=== PATIENT | male | born 1965 | race Two or more races ===

== ENCOUNTER 2017-04-21 13:06 | Inpatient (IN) | payer OTHER ==
--- NOTE | 2017-04-21 13:43 | PDOC ---
History of Present Illness - General Chief Complaint: Pain, Acute Stated Complaint: ABD PAIN Time Seen by Provider: 04/21/17 13:43 Past History - Past Medical History Allergies/Adverse Reactions: Allergies Allergy/AdvReac Type Severity Reaction Status Date / Time No Known Allergies Allergy Verified 04/21/17 13:21 Home Medications: Ambulatory Orders Metformin HCl [Glucophage -] 850 mg PO DAILY 04/21/17 Diabetes: Yes - Surgical History Appendectomy: Yes - Immunization History Immunization Up to Date: Yes - Psycho/Social/Smoking Cessation Hx Suicidal Ideation: No Smoking History: Never smoked Hx Alcohol Use: No Drug/Substance Use Hx: No *Physical Exam - Vital Signs Last Vital Signs Temp Pulse Resp BP Pulse Ox 97.9 F 79 20 134/98 100 04/21/17 13:22 04/21/17 13:22 04/21/17 13:22 04/21/17 13:22 04/21/17 13:22
[2017-04-21 13:50] LABS: BASOPHIL 0.5 % (0-2.0); EOSINOPHIL 0.6 % (0-4.5); MCH 26.8 pg (25.7-33.7); MCHC 33.4 g/dl (32.0-35.9); MEAN CELL VOLUME 80.3 fl (80-96); MEAN PLT VOLUME 7.3 fl (7.5-11.1); NEUTROPHILS 73.1 % (42.8-82.8); PLATELET COUNT 293 K/MM3 (134-434); RDW 17.4 % (11.9-15.9); WHITE BLOOD COUNT 12.4 K/mm3 (4.0-10.0)
[2017-04-21] MEDS ORDERED: SODIUM CHLORIDE 1,000 ML IV STA ×2 (13:53→15:56)
[2017-04-21] MEDS ORDERED: ONDANSETRON 4 MG/2 ML VIAL IVPUSH ONE (13:53)
[2017-04-21] MEDS ORDERED: morphine CARPU-JECT 4 MG/1 ML DISP.SYRIN IVPUSH ONE (13:53)
[2017-04-21] MEDS ORDERED: morphine CARPU-JECT 4 MG/1 ML DISP.SYRIN ONE (14:00)
[2017-04-21] MEDS ORDERED: ONDANSETRON 4 MG/2 ML VIAL ONE ×2 (14:01→21:16)
--- NOTE | 2017-04-21 14:08 | PDOC ---
History of Present Illness - General History Source: Patient, Spouse - History of Present Illness Quality: reports: severe Abdominal Pain Onset Location: reports: generalized abdomen <Michael Mattson - Last Filed: 04/21/17 16:43> <Jaky Logan - Last Filed: 04/26/17 17:33> - General Chief Complaint: Pain, Acute Stated Complaint: ABD PAIN Time Seen by Provider: 04/21/17 13:43 Past History - Past Medical History Diabetes: Yes - Surgical History Appendectomy: Yes - Immunization History Immunization Up to Date: Yes - Psycho/Social/Smoking Cessation Hx Suicidal Ideation: No Smoking History: Never smoked Hx Alcohol Use: No Drug/Substance Use Hx: No <Michael Mattson - Last Filed: 04/21/17 16:43> <Jaky Logan - Last Filed: 04/26/17 17:33> - Past Medical History Allergies/Adverse Reactions: Allergies Allergy/AdvReac Type Severity Reaction Status Date / Time No Known Allergies Allergy Verified 04/21/17 13:21 Home Medications: Ambulatory Orders Benazepril HCl 10 mg PO DAILY 04/21/17 Folic Acid 1 mg PO DAILY 04/21/17 Metformin HCl [Glucophage -] 850 mg PO DAILY 04/21/17 Ranitidine [Zantac -] 150 mg PO BID 04/21/17 Review of Systems - Review of Systems Constitutional: No: Fever ABD/GI: Yes: Nausea, Abdominal cramping. No: Diarrhea, Vomiting : No: Dysuria, Flank Pain, Hematuria <Michael Mattson - Last Filed: 04/21/17 16:43> *Physical Exam - Vital Signs Last Vital Signs Temp Pulse Resp BP Pulse Ox 97.9 F 79 20 134/98 100 04/21/17 13:22 04/21/17 13:22 04/21/17 13:22 04/21/17 13:22 04/21/17 13:22 - Physical Exam Comments: 04/21/17 14:08 Pt writhing in pain on stretcher General Appearance: Yes: Appropriately Dressed, Severe Distress HEENT: positive: Normal Voice Neck: positive: Supple Respiratory/Chest: positive: Lungs Clear, Normal Breath Sounds. negative: Respiratory Distress Cardiovascular: positive: Regular Rate, S1, S2 Gastrointestinal/Abdominal: positive: Tender (diffusely), Soft, Guarding Musculoskeletal: negative: CVA Tenderness Extremity: positive: Normal Inspection Integumentary: positive: Dry, Warm Neurologic: positive: Fully Oriented, Alert, Normal Mood/Affect <Taryn MattsonJovon - Last Filed: 04/21/17 16:43> - Vital Signs Last Vital Signs Temp Pulse Resp BP Pulse Ox 97.7 F 50 L 18 143/60 97 04/26/17 14:54 04/26/17 14:54 04/26/17 14:54 04/26/17 14:54 04/26/17 09:00 <Jaky Logan - Last Filed: 04/26/17 17:33> Heart Score/ECG Review - ECG Intrepretation Comment:: 04/21/17 14:29 Twelve-lead EKG was performed and reviewed by me. There is normal sinus rhythm with a normal rate. The axis is normal. The intervals are normal. There are no ST or T wave abnormalities. Impression: Normal twelve-lead EKG <Taryn MattsonKareenVivian - Last Filed: 04/21/17 16:43> ED Treatment Course - LABORATORY CBC & Chemistry Diagram: 04/21/17 13:43 04/21/17 13:43 - ADDITIONAL ORDERS Additional order review: 04/21/17 13:43 RBC 4.90 MCV 80.3 MCHC 33.4 RDW 17.4 H MPV 7.3 L Neutrophils % 73.1 Lymphocytes % 17.8 Monocytes % 8.0 Eosinophils % 0.6 Basophils % 0.5 - RADIOLOGY Radiology Studies Ordered: Category Date Time Status ABDOMEN & PELVIS CT WITH CONTR [CT] Stat CT Scan 04/21/17 13:55 Ordered <TwilaTarynKareenVivian - Last Filed: 04/21/17 16:43> - LABORATORY CBC & Chemistry Diagram: 04/26/17 07:00 04/26/17 07:00 - ADDITIONAL ORDERS Additional order review: 04/21/17 13:43 RBC 4.90 MCV 80.3 MCHC 33.4 RDW 17.4 H MPV 7.3 L Neutrophils % 73.1 Lymphocytes % 17.8 Monocytes % 8.0 Eosinophils % 0.6 Basophils % 0.5 - Medications Given in the ED: ED Medications Discontinued Medications Generic Name Dose Route Start Last Admin Trade Name Nguyễnq PRN Reason Stop Dose Admin Hydromorphone HCl 2 mg 04/21/17 16:18 04/21/17 16:25 Dilaudid Injection - IVPB 04/21/17 16:19 2 mg ONCE ONE Administration Hydromorphone HCl 1 mg 04/21/17 16:19 04/22/17 16:41 Dilaudid Injection - IVPUSH 1 mg Q4H PRN Administration PAIN Hydromorphone HCl 1 mg 04/23/17 01:32 04/23/17 21:52 Dilaudid Injection - IVPB 1 mg Q4H PRN Administration PAIN Sodium Chloride 1,000 mls @ 1,000 mls/hr 04/21/17 13:53 04/21/17 14:00 Normal Saline - IV 04/21/17 14:52 1,000 mls/hr ASDIR STA Administration Sodium Chloride 1,000 mls @ 1,000 mls/hr 04/21/17 15:56 04/21/17 16:21 Normal Saline - IV 04/21/17 16:55 1,000 mls/hr ASDIR STA Administration Dextrose/Sodium Chloride 1,000 mls @ 100 mls/hr 04/21/17 16:30 04/22/17 07:48 D5-1/2ns - IV 100 mls/hr ASDIR LAINA Administration Lactated Ringer's 1,000 mls @ 125 mls/hr 04/22/17 10:15 04/24/17 12:24 Lactated Ringers Solution IV 125 mls/hr ASDIR LAINA Administration Lactated Ringer's 1,000 mls @ 200 mls/hr 04/24/17 17:30 04/26/17 15:14 Lactated Ringers Solution IV 200 mls/hr ASDIR LAINA Administration Insulin Aspart 1 vial 04/21/17 16:30 04/22/17 07:48 Novolog Vial Sliding Scale - SQ Not Given ACHS LAINA Protocol Insulin Aspart 1 vial 04/22/17 10:02 04/24/17 16:13 Novolog Vial Sliding Scale - SQ Not Given ACHS LAINA Protocol Morphine Sulfate 4 mg 04/21/17 13:53 04/21/17 14:09 Morphine Injection - IVPUSH 04/21/17 13:54 4 mg ONCE ONE Administration Ondansetron HCl 4 mg 04/21/17 13:53 04/21/17 14:10 Zofran Injection IVPUSH 04/21/17 13:54 4 mg ONCE ONE Administration Piperacillin Sod/Tazobactam Sod 3.375 gm 04/21/17 17:00 04/22/17 01:24 Zosyn 3.375gm Ivpb (Pre-Docked) IVPB 04/22/17 01:01 3.375 gm Q8H LAINA Administration Protocol Piperacillin Sod/Tazobactam Sod 3.375 gm 04/22/17 18:45 04/24/17 09:06 Zosyn 3.375gm Ivpb (Pre-Docked) IVPB 3.375 gm Q8H-IV LAINA Administration Protocol <Jaky Logan - Last Filed: 04/26/17 17:33> Medical Decision Making - Medical Decision Making 04/21/17 14:03 51 yo M, h/o NIDDM, HTN, s/p appy remotely, here with severe periumbilical abdominal pain that started several days ago but acutely worsened today. Patient also complaining of nausea, no vomiting. Denies change in bowel movements, bright red blood per rectum, melena, fever, chills, dysuria or hematuria. Patient states he's never had this pain before. See exam Severe abd pain Pt appears very uncomfortable in ED Poorly localized tenderness on exam but no peritoneal findings -pain control -zofran -IVF -XR r/o free air given level of discomfort -CT r/o divertiticulitis vs acute светлана vs pancreatitis, unlikely aortic dissection, doubt renal colic as no flank pain or sxs 04/21/17 14:09 04/21/17 14:29 04/21/17 14:55 Acute gallstone pancreatitis on CT w/ elevated LFTS including lipase of >24K! Pt denies ETOH abuse -NPO -pain control -IVF -admit 04/21/17 16:17 Case d/w hospitalist and pt admitted to med/surg 04/21/17 16:31 04/21/17 16:31 04/21/17 16:43 04/21/17 16:44 <Michael Mattson - Last Filed: 04/21/17 16:43> - Medical Decision Making 04/26/17 17:32 Pt seen and evaluated with [employer] [employer]. Agree with above. <Jaky Logan - Last Filed: 04/26/17 17:33> *DC/Admit/Observation/Transfer - Discharge Dispostion Admit: Yes <Michael Mattson - Last Filed: 04/21/17 16:43> <Jaky Logan - Last Filed: 04/26/17 17:33> Diagnosis at time of Disposition: Acute pancreatitis Qualifiers: Pancreatitis type: biliary Acute pancreatitis complication: no infection or necrosis Qualified Code(s): K85.10 - Biliary acute pancreatitis without necrosis or infection - Discharge Dispostion Condition at time of disposition: Fair - Referrals
[2017-04-21 14:15] LABS: ALBUMIN 3.9 g/dl (3.4-5.0); ANION GAP 8 (8-16); BILIRUBIN,TOTAL 0.8 mg/dL (0.2-1.0); CALCIUM 9.3 mg/dL (8.5-10.1); CO2 28 mmol/L (21-32); GLUCOSE,RANDOM 211 mg/dL (74-106); SGOT/AST 151 U/L (15-37); SGPT/ALT 102 U/L (12-78); TOT PROT 7.4 g/dl (6.4-8.2)
[2017-04-21 14:18] LABS: ALK PHOS 133 U/L (45-117); TROPONIN I < 0.02 ng/ml (0.00-0.05)
[2017-04-21 16:15] LABS: URINE APPEARANCE CLEAR; URINE BILIRUBIN NEGATIVE (NEGATIVE); URINE BLOOD NEGATIVE (NEGATIVE); URINE COLOR LTYELLOW; URINE GLUCOSE (UA) 1+ (NEGATIVE); URINE KETONE NEGATIVE (NEGATIVE); URINE LEUK ESTERASE NEGATIVE (NEGATIVE); URINE NITRITE NEGATIVE (NEGATIVE); URINE PROTEIN NEGATIVE (NEGATIVE); URINE UROBILINOGEN NEGATIVE E.U./dl (0.2-1.0)
--- NOTE | 2017-04-21 16:17 | HP ---
CHIEF COMPLAINT: abd pain for few days PCP: Dr. Spencer Sommers HISTORY OF PRESENT ILLNESS: This 51 yo M, admitted for severe periumbilical abdominal pain that started several days ago but acutely worsened today. His complaints include nausea. He denies vomiting, diarrhea, fever, melena, or dysuria. He states he has never had this pain before and he only drinks ETOH socially. Denies drug use . ER course was notable for: (1) CT of abd/pel revealing calculi induced pancreatitis, NPO, ABT, IVF, Pain managemnt, GI (2) (3) Recent Travel: none PAST MEDICAL HISTORY: NIDDM, HTN PAST SURGICAL HISTORY: appy Social History: Smoking: Alcohol: denies recent use. Drugs: Family History: Allergies No Known Allergies Allergy (Verified 04/21/17 13:21) HOME MEDICATIONS: Home Medications Medication Instructions Recorded Benazepril HCl 10 mg PO DAILY 04/21/17 Folic Acid 1 mg PO DAILY 04/21/17 Metformin HCl [Glucophage -] 850 mg PO DAILY 04/21/17 Ranitidine [Zantac -] 150 mg PO BID 04/21/17 REVIEW OF SYSTEMS CONSTITUTIONAL: Absent: fever, chills, diaphoresis, generalized weakness, malaise, loss of appetite, weight change HEENT: Absent: rhinorrhea, nasal congestion, throat pain, throat swelling, difficulty swallowing, mouth swelling, ear pain, eye pain, visual changes CARDIOVASCULAR: Absent: chest pain, syncope, palpitations, irregular heart rate, lightheadedness , peripheral edema RESPIRATORY: Absent: cough, shortness of breath, dyspnea with exertion, orthopnea, wheezing, stridor, hemoptysis GASTROINTESTINAL: Absent: (+)abdominal pain, abdominal distension, (+)nausea, vomiting, diarrhea, constipation, melena, hematochezia GENITOURINARY: Absent: dysuria, frequency, urgency, hesitancy, hematuria, flank pain, genital pain MUSCULOSKELETAL: Absent: myalgia, arthralgia, joint swelling, back pain, neck pain SKIN: Absent: rash, itching, pallor HEMATOLOGIC/IMMUNOLOGIC: Absent: easy bleeding, easy bruising, lymphadenopathy, frequent infections ENDOCRINE: Absent: unexplained weight gain, unexplained weight loss, heat intolerance, cold intolerance NEUROLOGIC: Absent: headache, focal weakness or paresthesias, dizziness, unsteady gait, seizure, mental status changes, bladder or bowel incontinence PSYCHIATRIC: Absent: anxiety, depression, suicidal or homicidal ideation, hallucinations. PHYSICAL EXAMINATION Vital Signs - 24 hr 04/21/17 04/21/17 04/21/17 13:20 13:22 14:00 Temperature 97.9 F Pulse Rate 79 Respiratory 20 Rate Blood Pressure 134/98 134/98 O2 Sat by Pulse 100 100 Oximetry (%) GENERAL: Awake, alert, and fully oriented, in no acute distress. HEAD: Normal with no signs of trauma. EYES: Pupils equal, round and reactive to light, extraocular movements intact, sclera anicteric, conjunctiva clear. No lid lag. EARS, NOSE, THROAT: Ears normal, nares patent, oropharynx clear without exudates. Moist mucous membranes. NECK: Normal range of motion, supple without lymphadenopathy, JVD, or masses. LUNGS: Breath sounds equal, clear to auscultation bilaterally. No wheezes, and no crackles. No accessory muscle use. HEART: Regular rate and rhythm, normal S1 and S2 without murmur, rub or gallop. ABDOMEN: Soft, tender, not distended, normoactive bowel sounds, no guarding, no rebound, no masses. No hepatomegaly or splenomegaly. MUSCULOSKELETAL: Normal range of motion at all joints. No bony deformities or tenderness. No CVA tenderness. UPPER EXTREMITIES: 2+ pulses, warm, well-perfused. No cyanosis. No clubbing. No peripheral edema. LOWER EXTREMITIES: 2+ pulses, warm, well-perfused. No calf tenderness. No peripheral edema. NEUROLOGICAL: Cranial nerves II-XII intact. Normal speech. Normal gait. PSYCHIATRIC: Cooperative. Good eye contact. Appropriate mood and affect. SKIN: Warm, dry, normal turgor, no rashes or lesions noted, normal capillary refill. Laboratory Results - last 24 hr 04/21/17 04/21/17 13:43 13:43 WBC 12.4 H RBC 4.90 Hgb 13.1 Hct 39.3 MCV 80.3 MCHC 33.4 RDW 17.4 H Plt Count 293 MPV 7.3 L Neutrophils % 73.1 Lymphocytes % 17.8 Monocytes % 8.0 Eosinophils % 0.6 Basophils % 0.5 Sodium 138 Potassium 4.4 Chloride 102 Carbon Dioxide 28 Anion Gap 8 BUN 15 Creatinine 1.0 Creat Clearance w eGFR > 60 Random Glucose 211 H Calcium 9.3 Total Bilirubin 0.8 AST 151 H ALT 102 H Alkaline Phosphatase 133 H Creatine Kinase 118 Troponin I < 0.02 Total Protein 7.4 Albumin 3.9 ASSESSMENT/PLAN: This 51 yr old male with c/o abd pain over the past few days with suggestive finding of calculi induced pancreatitis found on CT. 1. pancreatitis -NPO/IVF -pain managment -ABT -GI consult -trend LFT 2. DM -fingersticks -coverage 3. Admission criteria for inpatient med surg. Visit type - Emergency Visit Emergency Visit: Yes Care time: The patient presented to the Emergency Department on the above date and was hospitalized for further evaluation of their emergent condition. - New Patient This patient is new to me today: Yes Date on this admission: 04/21/17 - Critical Care Critical Care patient: No
[2017-04-21] MEDS ORDERED: HYDROmorphone HCL CARPU-JECT 2 MG/1 ML DISP.SYRIN IVPB ONE (16:18)
[2017-04-21] MEDS ORDERED: ONDANSETRON 4 MG/2 ML VIAL IVPB PRN (16:19)
[2017-04-21] MEDS ORDERED: HYDROmorphone HCL CARPU-JECT 2 MG/1 ML DISP.SYRIN ONE (16:26)
[2017-04-21] MEDS ORDERED: PANTOPRAZOLE SODIUM 40 MG in SODIUM CHLORIDE 100 ML IVPB SCH (16:30)
[2017-04-21] MEDS ORDERED: PANTOPRAZOLE SODIUM 40 MG VIAL ONE (16:33)
[2017-04-21] MEDS: INSULIN SLIDING SCALE (NOVOLOG) 1 VIAL SQ SCH ×2 (17:03→21:28)
[2017-04-21] MEDS: PANTOPRAZOLE SODIUM 40 MG/100 ML PRE-DOCKED IVPB SCH (17:05)
[2017-04-21] MEDS ORDERED: INSULIN (NOVOLOG) ASPART 100 UNITS/ML 10ML VIAL ONE (17:09)
[2017-04-21] MEDS: PIPERACILLIN/TAZOB 3.375 GM/50 ML PRE-DOCKED IVPB SCH (17:13)
[2017-04-21] MEDS: DEXTROSE 5%-0.45% SALINE 1,000 ML IV SCH (18:32)
[2017-04-21] MEDS ORDERED: HYDROmorphone HCL CARPU-JECT 1 MG/1 ML DISP.SYRIN ONE (21:03)
[2017-04-21] MEDS ORDERED: HEPARIN NA (PORCINE) 5,000 UNITS/ML 1ML VIAL ONE (21:04)
[2017-04-21] MEDS: HEPARIN NA (PORCINE) 5,000 UNITS/ML 1ML VIAL SQ SCH (21:27)
[2017-04-21] MEDS: HYDROmorphone HCL CARPU-JECT 1 MG/1 ML DISP.SYRIN IVPUSH PRN (21:28)
[2017-04-22 00:23] VITALS: BMI 34.8
[2017-04-22] MEDS ORDERED: PIPERACILLIN/TAZOB 3.375 GM 50 ML IVPB ONE (01:04)
[2017-04-22] MEDS ORDERED: HYDROmorphone HCL CARPU-JECT 1 MG/1 ML DISP.SYRIN ONE ×2 (01:14→16:32)
[2017-04-22] MEDS: PIPERACILLIN/TAZOB 3.375 GM/50 ML PRE-DOCKED IVPB SCH ×2 (01:24→19:48)
[2017-04-22] MEDS: HYDROmorphone HCL CARPU-JECT 1 MG/1 ML DISP.SYRIN IVPUSH PRN ×2 (01:24→16:41)
[2017-04-22] MEDS: DEXTROSE 5%-0.45% SALINE 1,000 ML IV SCH ×2 (01:25→07:48)
[2017-04-22] MEDS ORDERED: HEPARIN NA (PORCINE) 5,000 UNITS/ML 1ML VIAL ONE (06:15)
[2017-04-22 06:21] LABS: BASOPHIL 0.2 % (0-2.0); EOSINOPHIL 0.1 % (0-4.5); MCH 26.6 pg (25.7-33.7); MCHC 32.8 g/dl (32.0-35.9); MEAN CELL VOLUME 81.2 fl (80-96); MEAN PLT VOLUME 7.8 fl (7.5-11.1); NEUTROPHILS 70.1 % (42.8-82.8); PLATELET COUNT 281 K/MM3 (134-434); WHITE BLOOD COUNT 9.7 K/mm3 (4.0-10.0)
[2017-04-22 06:31] LABS: INR 1.12 (0.82-1.09); PROTHROMBIN TIME (PATIENT) 12.3 SEC (9.98-11.88)
[2017-04-22 06:34] LABS: ACTIVATED PTT 30.8 SECONDS (26.9-34.4)
[2017-04-22 06:49] LABS: ANION GAP 7 (8-16); CO2 30 mmol/L (21-32); MAGNESIUM 2.1 mg/dL (1.8-2.4); SGOT/AST 92 U/L (15-37); SGPT/ALT 111 U/L (12-78)
[2017-04-22 06:58] LABS: ALBUMIN 3.5 g/dl (3.4-5.0); ALK PHOS 132 U/L (45-117); AMYLASE 377 U/L (25-115); BILIRUBIN,TOTAL 0.7 mg/dL (0.2-1.0); CALCIUM 8.8 mg/dL (8.5-10.1); CREATININE 0.9 mg/dL (0.7-1.3); GLUCOSE,RANDOM 237 mg/dL (74-106); PHOSPHOROUS 2.9 mg/dL (2.5-4.9); TOT PROT 6.8 g/dl (6.4-8.2)
[2017-04-22] MEDS: HEPARIN NA (PORCINE) 5,000 UNITS/ML 1ML VIAL SQ SCH ×3 (07:47→21:41)
[2017-04-22] MEDS: INSULIN SLIDING SCALE (NOVOLOG) 1 VIAL SQ SCH ×4 (07:48→21:41)
[2017-04-22] MEDS ORDERED: PANTOPRAZOLE SODIUM 100 ML IVPB ONE (09:05)
[2017-04-22] MEDS: PANTOPRAZOLE SODIUM 40 MG/100 ML PRE-DOCKED IVPB SCH (09:45)
[2017-04-22] MEDS ORDERED: PIPERACILLIN/TAZOB 3.375 GM/50 ML PRE-DOCKED IVPB SCH (10:00)
[2017-04-22] MEDS: LACTATED RINGERS SOLUTION 1,000 ML IV SCH ×2 (12:49→19:53)
--- NOTE | 2017-04-22 14:21 | EKG ---
Test Reason : Blood Pressure : / mmHG Vent. Rate : 075 BPM Atrial Rate : 075 BPM P-R Int : 168 ms QRS Dur : 108 ms QT Int : 406 ms P-R-T Axes : 039 048 047 degrees QTc Int : 453 ms NORMAL SINUS RHYTHM NORMAL ECG NO PREVIOUS ECGS AVAILABLE Confirmed by ADRIANO CRANE MD ([id number]) on 04/22/2017 2:21:02 PM Referred By: Confirmed By:ADRIANO CRANE MD
--- NOTE | 2017-04-22 18:26 | PN ---
Physical Exam: SUBJECTIVE: Patient seen and examined. He had CANDELARIO earlier improve with pain meds , however he has a lot of abdominal pain Events: Tmax 100.4 OBJECTIVE: Vital Signs Period Temp Pulse Resp BP Sys/Pollard Pulse Ox Last 24 Hr 98.4 F-100.4 F 71-100 20-20 115-136/71-76 98-99 PE Neuro: alert, awake, cn 2-12intact Pulm: clear anteriorly CV: s1 s2 rrr no mrg Abd: diffuse abd tenderness to palpation to RUQ, umbilical region and LLQ, mild distention, Ext: no le edema, warm Laboratory Results - last 24 hr 04/21/17 04/22/17 04/22/17 21:25 05:38 05:38 WBC 9.7 RBC 4.48 Hgb 11.9 Hct 36.4 MCV 81.2 MCHC 32.8 RDW 17.0 H Plt Count 281 MPV 7.8 Neutrophils % 70.1 Lymphocytes % 21.2 Monocytes % 8.4 Eosinophils % 0.1 D Basophils % 0.2 INR 1.12 PTT (Actin FS) 30.8 Sodium Potassium Chloride Carbon Dioxide Anion Gap BUN Creatinine Creat Clearance w eGFR POC Glucometer [id number] Random Glucose Calcium Phosphorus Magnesium Total Bilirubin AST ALT Alkaline Phosphatase Total Protein Albumin Total Amylase Lipase Active Medications Generic Name Dose Route Start Last Admin Trade Name Nguyễnq PRN Reason Stop Dose Admin Heparin Sodium (Porcine) 5,000 unit 04/21/17 22:00 04/22/17 14:09 Heparin - SQ 5,000 unit TID LAINA Administration Hydromorphone HCl 1 mg 04/21/17 16:19 04/22/17 16:41 Dilaudid Injection - IVPUSH 1 mg Q4H PRN Administration PAIN Lactated Ringer's 1,000 mls @ 125 mls/hr 04/22/17 10:15 04/22/17 12:49 Lactated Ringers Solution IV 125 mls/hr ASDIR LAINA Administration Insulin Aspart 1 vial 04/22/17 10:02 04/22/17 17:22 Novolog Vial Sliding Scale - SQ 2 units ACHS LAINA Administration Protocol Ondansetron HCl 4 mg 04/21/17 16:19 04/21/17 21:28 Zofran Injection IVPB 4 mg Q6H PRN Administration NAUSEA Pantoprazole Sodium 40 mg 04/21/17 17:00 06/19/17 09:45 Protonix 40mg Ivpb (Pre-Docked) IVPB 40 mg DAILY LAINA Administration Assessment: 51 year old male with HTN, DM II admitted with acute pancreatitis Plan: 1. Acute Pancreatitis, likely gallstone related - Febrile this afternoon - Continue LR 125cc/hr - Check Lipase - Keep NPO - Zosyn 8hr - Draw blood cultures now - ID consulted 2. DM II - ISS, BGM ACHS 3. HTN - Hold home benazipril Visit type - Emergency Visit Emergency Visit: Yes ED Registration Date: 04/21/17 Care time: The patient presented to the Emergency Department on the above date and was hospitalized for further evaluation of their emergent condition. - New Patient This patient is new to me today: Yes Date on this admission: 04/22/17 - Critical Care Critical Care patient: No
[2017-04-22] MEDS ORDERED: ACETAMINOPHEN 650 MG SUPP.RECT PR PRN (18:30)
--- NOTE | 2017-04-22 19:10 | PN ---
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
--- NOTE | 2017-04-22 19:13 | CONSULT ---
Consult Consult Specialty:: infectious diseases Reason for Consultation:: choleycystitis/pancreatitis - History of Present Illness Chief Complaint: abd pain History of Present Illness: 51M admitted for evaluation of abdominal pain. history given by his spouse as he can speak only chinese,rest of the family in the room also Patient with abd discomfort which became untolerable patient came to the hospital and was admitted and the imaging studies done shows cholelithiasis. he was noted to have a leukocytosis, low grade temp, elevated ALP and transaminases, elevated amylase and lipase and CT scan revealing cholelithiasis and changes consistent with acute pancreatitis. patients pain is pretty remarkable and patient has murphys positive other than that patient has no issues patient does use etoh - History Source History Provided By: Family Member Limitations to Obtaining History: Language Barrier - Alcohol/Substance Use Hx Alcohol Use: No - Smoking History Smoking history: Never smoked Have you smoked in the past 12 months: No Home Medications - Allergies Allergies/Adverse Reactions: Allergies Allergy/AdvReac Type Severity Reaction Status Date / Time No Known Allergies Allergy Verified 04/21/17 13:21 - Home Medications Home Medications: Ambulatory Orders Benazepril HCl 10 mg PO DAILY 04/21/17 Folic Acid 1 mg PO DAILY 04/21/17 Metformin HCl [Glucophage -] 850 mg PO DAILY 04/21/17 Ranitidine [Zantac -] 150 mg PO BID 04/21/17 Review of Systems - Review of Systems Constitutional: reports: Chills, Fever Eyes: reports: No Symptoms HENT: reports: No Symptoms Neck: reports: No Symptoms Cardiovascular: reports: No Symptoms Respiratory: reports: No Symptoms Gastrointestinal: reports: Abdominal Pain Genitourinary: reports: No Symptoms Musculoskeletal: reports: No Symptoms Integumentary: reports: No Symptoms Neurological: reports: No Symptoms Endocrine: reports: No Symptoms Hematology/Lymphatic: reports: No Symptoms Psychiatric: reports: No Symptoms Physical Exam Vital Signs: Vital Signs Temperature 99.5 F 04/22/17 18:56 Pulse Rate 81 04/22/17 18:56 Respiratory Rate 20 04/22/17 18:56 Blood Pressure 120/81 04/22/17 18:56 O2 Sat by Pulse Oximetry (%) 99 04/22/17 09:00 Constitutional: Yes: Well Nourished, Mild Distress Eyes: Yes: Conjunctiva Clear HENT: Yes: Atraumatic Neck: Yes: Supple Cardiovascular: Yes: Regular Rate and Rhythm Respiratory: Yes: Regular, CTA Bilaterally Gastrointestinal: Yes: Soft, Tenderness (ruq) Musculoskeletal: Yes: WNL Extremities: Yes: WNL Neurological: Yes: Alert, Oriented Psychiatric: Yes: Alert, Oriented Labs: CBC, BMP 04/22/17 05:38 04/22/17 05:38 Imaging - Results Chest X-ray: Report Reviewed, Image Reviewed Cat Scan: Report Reviewed, Image Reviewed Assessment/Plan [facility] List - Problems (1) Acute pancreatitis Code(s): K85.90 - ACUTE PANCREATITIS WITHOUT NECROSIS OR INFECTION, UNSP Qualifiers: Pancreatitis type: biliary Acute pancreatitis complication: no infection or necrosis Qualified Code(s): K85.10 - Biliary acute pancreatitis without necrosis or infection 2 cholecystitis 3 dm plan will start iv abx await for all cx report
[2017-04-23] MEDS: HYDROmorphone HCL CARPU-JECT 1 MG/1 ML DISP.SYRIN IVPB PRN ×3 (01:35→21:52)
[2017-04-23] MEDS: PIPERACILLIN/TAZOB 3.375 GM/50 ML PRE-DOCKED IVPB SCH ×3 (02:34→17:45)
[2017-04-23] MEDS: HEPARIN NA (PORCINE) 5,000 UNITS/ML 1ML VIAL SQ SCH ×3 (05:48→21:53)
[2017-04-23] MEDS: LACTATED RINGERS SOLUTION 1,000 ML IV SCH ×3 (05:48→16:29)
[2017-04-23] MEDS: INSULIN SLIDING SCALE (NOVOLOG) 1 VIAL SQ SCH ×4 (06:12→21:56)
[2017-04-23 08:07] LABS: BASOPHIL 0.4 % (0-2.0); EOSINOPHIL 0.7 % (0-4.5); MCH 26.7 pg (25.7-33.7); MCHC 33.1 g/dl (32.0-35.9); MEAN CELL VOLUME 80.6 fl (80-96); MEAN PLT VOLUME 7.7 fl (7.5-11.1); NEUTROPHILS 52.3 % (42.8-82.8); PLATELET COUNT 248 K/MM3 (134-434); RDW 17.4 % (11.9-15.9); WHITE BLOOD COUNT 8.1 K/mm3 (4.0-10.0)
[2017-04-23 08:53] LABS: ALBUMIN 3.2 g/dl (3.4-5.0); ALK PHOS 131 U/L (45-117); ANION GAP 7 (8-16); BILIRUBIN,TOTAL 1.2 mg/dL (0.2-1.0); CALCIUM 8.8 mg/dL (8.5-10.1); CO2 30 mmol/L (21-32); CREATININE 0.8 mg/dL (0.7-1.3); GLUCOSE,RANDOM 124 mg/dL (74-106); SGOT/AST 51 U/L (15-37); SGPT/ALT 74 U/L (12-78); TOT PROT 6.3 g/dl (6.4-8.2)
[2017-04-23] MEDS: PANTOPRAZOLE SODIUM 40 MG/100 ML PRE-DOCKED IVPB SCH (10:26)
--- NOTE | 2017-04-23 12:50 | PN ---
Physical Exam: SUBJECTIVE: Patient seen and examined. He is feeling a litter better, he has less diffuse tenderness. OOB to side with . He wants to eat OBJECTIVE: Vital Signs Period Temp Pulse Resp BP Sys/Pollard Pulse Ox Last 24 Hr 98.9 F-100.4 F 75-100 20-20 118-148/63-93 99 PE Neuro: alert, awake, cn 2-12intact Pulm: CTAB CV: s1 s2 rrr no mrg Abd: non specific referring of abdominal tenderness, point epigastric less Ext: no le edema, warm Laboratory Results - last 24 hr 04/22/17 04/23/17 04/23/17 21:40 05:34 07:00 WBC 8.1 RBC 4.34 Hgb 11.6 L Hct 35.0 L MCV 80.6 MCHC 33.1 RDW 17.4 H Plt Count 248 MPV 7.7 Neutrophils % 52.3 D Lymphocytes % 34.2 D Monocytes % 12.4 H Eosinophils % 0.7 D Basophils % 0.4 Sodium Potassium Chloride Carbon Dioxide Anion Gap BUN Creatinine Creat Clearance w eGFR POC Glucometer 145 131 Random Glucose Lactic Acid Calcium Total Bilirubin AST ALT Alkaline Phosphatase Total Protein Albumin Lipase 04/23/17 04/23/17 04/23/17 07:00 07:00 07:00 WBC RBC Hgb Hct MCV MCHC RDW Plt Count MPV Neutrophils % Lymphocytes % Monocytes % Eosinophils % Basophils % Sodium 138 Potassium 3.8 Chloride 101 Carbon Dioxide 30 Anion Gap 7 L BUN 9 Creatinine 0.8 Creat Clearance w eGFR > 60 POC Glucometer Random Glucose 124 H D Lactic Acid 1.1 Calcium 8.8 Total Bilirubin 1.2 H D AST 51 H D ALT 74 D Alkaline Phosphatase 131 H Total Protein 6.3 L Albumin 3.2 L Lipase 901 H Cancelled Active Medications Generic Name Dose Route Start Last Admin Trade Name Freq PRN Reason Stop Dose Admin Acetaminophen 650 mg 04/22/17 18:30 Tylenol Suppository - DE Q4H PRN FEVER OR PAIN Heparin Sodium (Porcine) 5,000 unit 04/21/17 22:00 04/23/17 05:48 Heparin - SQ 5,000 unit TID LAINA Administration Hydromorphone HCl 1 mg 04/23/17 01:32 04/23/17 01:35 Dilaudid Injection - IVPB 1 mg Q4H PRN Administration PAIN Lactated Ringer's 1,000 mls @ 125 mls/hr 04/22/17 10:15 04/23/17 10:27 Lactated Ringers Solution IV Not Given ASDIR LAINA Insulin Aspart 1 vial 04/22/17 10:02 04/23/17 11:30 Novolog Vial Sliding Scale - SQ Not Given ACHS LAINA Protocol Ondansetron HCl 4 mg 04/21/17 16:19 04/21/17 21:28 Zofran Injection IVPB 4 mg Q6H PRN Administration NAUSEA Pantoprazole Sodium 40 mg 04/21/17 17:00 04/23/17 10:26 Protonix 40mg Ivpb (Pre-Docked) IVPB 40 mg DAILY LAINA Administration Piperacillin Sod/Tazobactam Sod 3.375 gm 04/22/17 18:45 04/23/17 09:26 Zosyn 3.375gm Ivpb (Pre-Docked) IVPB 3.375 gm Q8H-IV LAINA Administration Protocol Assessment: 51 year old male with HTN, DM II admitted with acute pancreatitis Plan: 1. Acute Pancreatitis, likely gallstone related - Increase LR 200cc/hr - MRCP tomorrow - Lipase down trending - Advance diet per GI - Zosyn 8hr - BC pending - Surgery consulted for cholecystectomy 2. DM II - ISS, BGM ACHS 3. HTN - Hold home benazipril Visit type - Emergency Visit Emergency Visit: Yes ED Registration Date: 04/21/17 Care time: The patient presented to the Emergency Department on the above date and was hospitalized for further evaluation of their emergent condition. - New Patient This patient is new to me today: No - Critical Care Critical Care patient: No
--- NOTE | 2017-04-23 12:52 | CON.GI ---
Consult Consult Specialty:: GI Referred by:: Hospitalist Reason for Consultation:: Pancreatitis - History of Present Illness Chief Complaint: "I had abdominal pain" History of Present Illness: 51M admitted this past Saturday for evaluation of abdominal pain. His aided in intepretation as he speaks primarily Croatian. He was having some abdominal discomfort over the last couple of weeks intermittently that became constant and progressively more intense this past saturday. On admission he was noted to have a leukocytosis, low grade temp, elevated ALP and transaminases, elevated amylase and lipase and CT scan revealing cholelithiasis and changes consistent with acute pancreatitis. He has been maintained on lactated ringers @ 125cc/ hr. Pain had improved. This has never occurred in the past. He believes that he had a colonoscopy 5 years ago however does not recall the result. He drank about 6 beers per day up until 2 weeks ago and there has been no change in current medication regimen. There is no family history of colon cancer. His sister and mother may have had a "pancreas problem". 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 [employer] History of Recent Travel: No Home Medications - Allergies Allergies/Adverse Reactions: Allergies Allergy/AdvReac Type Severity Reaction Status Date / Time No Known Allergies Allergy Verified 04/21/17 13:21 - Home Medications Home Medications: Ambulatory Orders Benazepril HCl 10 mg PO DAILY 04/21/17 Folic Acid 1 mg PO DAILY 04/21/17 Metformin HCl [Glucophage -] 850 mg PO DAILY 04/21/17 Ranitidine [Zantac -] 150 mg PO BID 04/21/17 Family Disease History - Family Disease History Family Disease History: Other: Father ( 64: Alcohol complications), Mother ( 35: Liver problems), Brother (3: healthy), Sister (2: 1 35: pancreas and blood problem), Daughter (1 daughter: healthy) Other Family History: No family history of colorectal cancer or other GI malignancy Review of Systems - Review of Systems Constitutional: denies: Chills Cardiovascular: denies: Chest Pain Respiratory: denies: SOB Gastrointestinal: reports: Abdominal Pain, Nausea. denies: Vomiting Blood Physical Exam-GI Vital Signs: Vital Signs Temperature 99.4 F 04/23/17 10:00 Pulse Rate 75 04/23/17 10:00 Respiratory Rate 04/23/17 10:00 Blood Pressure 118/63 04/23/17 10:00 O2 Sat by Pulse Oximetry (%) 99 04/22/17 20:17 Constitutional: Yes: Calm Eyes: No: Sclera Icterus Cardiovascular: Yes: Regular Rate and Rhythm. No: Murmur Respiratory: Yes: CTA Bilaterally Gastrointestinal Inspection: Yes: Scars (Oblique RLQ scar). No: Distention ...Auscultate: Yes: Normoactive Bowel Sounds ...Palpate: Yes: Tenderness (Mild TTP mid abdomen/epigastrium). No: Guarding, Tenderness, Rebound ...Percussion: No: Fluid Wave, Tympanitic Edema: No Neurological: Yes: Alert, Oriented Labs: CBC, BMP 04/23/17 07:00 04/23/17 07:00 INR, PTT INR 1.12 (0.82-1.09) 04/22/17 05:38 Hepatic Panel Total Bilirubin 1.2 mg/dL (0.2-1.0) H D 04/23/17 07:00 AST 51 U/L (15-37) H D 04/23/17 07:00 ALT 74 U/L (12-78) D 04/23/17 07:00 Alkaline Phosphatase 131 U/L (45-117) H 04/23/17 07:00 Albumin 3.2 g/dl (3.4-5.0) L 04/23/17 07:00 Imaging - Results Cat Scan: Report Reviewed, Image Reviewed Problem List - Problems (1) Acute pancreatitis Assessment/Plan: Acute interstitial pancreatitis: Mr. Diaz does drink but has not had alcohol in 2 weeks with the most intense pain occurring this past saturday. Gallstone pancreatitis etiology would need to be considered in the differential as well. I explained this to Mr. Diaz and his and for now recommend the following: Continue IV hydration / NPO for now. If continued improvement in pain, clear liquids tomorrow MRI/MRCP of the abdomen ordered to assess CBD given rise in bilirubin and persistent elevation in ALP. This could al;so be secondary to pancreatic head inflammatory changes but will continue to monitor. Surgical consult ordered as patient will likely need cholecystectomy prior to discharge I did explain to Mr. Diaz and his that if MRCP suggests retained CBD stone, ERCP may be needed to clear the bile duct prior to proceeding with cholecystectomy. Monitor LFTs Continue IV Abx for now until MRCP obtained in case of retained CBD stone Code(s): K85.90 - ACUTE PANCREATITIS WITHOUT NECROSIS OR INFECTION, UNSP Qualifiers: Pancreatitis type: biliary Acute pancreatitis complication: no infection or necrosis Qualified Code(s): K85.10 - Biliary acute pancreatitis without necrosis or infection
--- NOTE | 2017-04-23 16:36 | PN ---
Progress Note, Physician History of Present Illness: patient improving pain better - Current Medication List Current Medications: Active Medications Acetaminophen (Tylenol Suppository -) 650 mg [place] Q4H PRN PRN Reason: FEVER OR PAIN Heparin Sodium (Porcine) (Heparin -) 5,000 unit SQ TID LAINA Last Admin: 04/23/17 13:43 Dose: 5,000 unit Hydromorphone HCl (Dilaudid Injection -) 1 mg IVPB Q4H PRN PRN Reason: PAIN Last Admin: 04/23/17 14:05 Dose: 1 mg Lactated Ringer's (Lactated Ringers Solution) 1,000 mls @ 125 mls/hr IV ASDIR LAINA Last Admin: 04/23/17 16:29 Dose: 125 mls/hr Insulin Aspart (Novolog Vial Sliding Scale -) 1 vial SQ ACHS LAINA PRN Reason: Protocol Last Admin: 04/23/17 16:30 Dose: Not Given Ondansetron HCl (Zofran Injection) 4 mg IVPB Q6H PRN PRN Reason: NAUSEA Last Admin: 04/21/17 21:28 Dose: 4 mg Pantoprazole Sodium (Protonix 40mg Ivpb (Pre-Docked)) 40 mg IVPB DAILY [facility] Last Admin: 04/23/17 10:26 Dose: 40 mg Piperacillin Sod/Tazobactam Sod (Zosyn 3.375gm Ivpb (Pre-Docked)) 3.375 gm IVPB Q8H-IV LAINA PRN Reason: Protocol Last Admin: 04/23/17 09:26 Dose: 3.375 gm - Objective Vital Signs: Vital Signs Temperature 98.5 F 04/23/17 14:00 Pulse Rate 70 04/23/17 14:00 Respiratory Rate 20 04/23/17 14:00 Blood Pressure 139/76 04/23/17 14:00 O2 Sat by Pulse Oximetry (%) 99 04/22/17 20:17 Constitutional: Yes: Calm, Mild Distress Cardiovascular: Yes: Regular Rate and Rhythm Respiratory: Yes: Regular, CTA Bilaterally Gastrointestinal: Yes: Normal Bowel Sounds, Soft Musculoskeletal: Yes: WNL Extremities: Yes: WNL Neurological: Yes: Alert, Oriented Psychiatric: Yes: Alert, Oriented Labs: CBC, BMP 04/23/17 07:00 04/23/17 07:00 INR, PTT INR 1.12 (0.82-1.09) 04/22/17 05:38 Assessment/Plan roblem List - Problems (1) Acute pancreatitis Code(s): K85.90 - ACUTE PANCREATITIS WITHOUT NECROSIS OR INFECTION, UNSP Qualifiers: Pancreatitis type: biliary Acute pancreatitis complication: no infection or necrosis Qualified Code(s): K85.10 - Biliary acute pancreatitis without necrosis or infection 2 cholecystitis 3 dm plan continue abx will see tomorrow if patient remains stable then will consider stopping abx
[2017-04-24] MEDS: PIPERACILLIN/TAZOB 3.375 GM/50 ML PRE-DOCKED IVPB SCH ×2 (01:15→09:06)
[2017-04-24] MEDS: LACTATED RINGERS SOLUTION 1,000 ML IV SCH ×3 (03:30→17:41)
[2017-04-24] MEDS: HEPARIN NA (PORCINE) 5,000 UNITS/ML 1ML VIAL SQ SCH ×3 (06:07→21:51)
[2017-04-24] MEDS: INSULIN SLIDING SCALE (NOVOLOG) 1 VIAL SQ SCH ×3 (06:07→16:13)
[2017-04-24 07:10] LABS: BASOPHIL 0.5 % (0-2.0); MCHC 33.8 g/dl (32.0-35.9); MEAN CELL VOLUME 79.7 fl (80-96); MEAN PLT VOLUME 7.5 fl (7.5-11.1); NEUTROPHILS 49.8 % (42.8-82.8); PLATELET COUNT 235 K/MM3 (134-434); RDW 16.7 % (11.9-15.9); WHITE BLOOD COUNT 7.1 K/mm3 (4.0-10.0)
[2017-04-24 07:39] LABS: ALBUMIN 3.1 g/dl (3.4-5.0); ALK PHOS 125 U/L (45-117); ANION GAP 10 (8-16); BILIRUBIN,TOTAL 1.3 mg/dL (0.2-1.0); CALCIUM 8.9 mg/dL (8.5-10.1); CO2 27 mmol/L (21-32); CREATININE 0.8 mg/dL (0.7-1.3); GLUCOSE,RANDOM 98 mg/dL (74-106); SGOT/AST 36 U/L (15-37); SGPT/ALT 58 U/L (12-78); TOT PROT 6.4 g/dl (6.4-8.2)
--- NOTE | 2017-04-24 08:05 | CONSULT ---
- Consultation REQUESTING PROVIDER: Dr. Leonardo CONSULT REQUEST: We have been asked to surgically evaluate this patient for abdominal pain, gallstone pancreatitis. PCP:Pepper Segal HISTORY OF PRESENT ILLNESS: The patient is a 51 yo male with a medical history of diabetes, arthritis. He presented to the ER with the complaints of upper abd pain associated with nausea. No emesis. He had a bowel movement this am. The patient states that his pain is better. He had sweating. The [employer] phone was used to with interpretation. #[id number]. PMHx: arthritis, diabetes PSHx: appendicitis Home Medications Medication Instructions Recorded Benazepril HCl 10 mg PO DAILY 04/21/17 Folic Acid 1 mg PO DAILY 04/21/17 Metformin HCl [Glucophage -] 850 mg PO DAILY 04/21/17 Ranitidine [Zantac -] 150 mg PO BID 04/21/17 Allergies Allergy/AdvReac Type Severity Reaction Status Date / Time No Known Allergies Allergy Verified 04/21/17 13:21 REVIEW OF SYSTEMS: CONSTITUTIONAL: Present: sweating, chills CARDIOVASCULAR: Absent: chest pain, syncope, palpitations, irregular heart rate, peripheral edema RESPIRATORY: Absent: cough, shortness of breath, GASTROINTESTINAL: Present: abdominal pain(upper), nausea Absent: constipation, emesis. Colonoscopy 5 years ago was negative also had an egd which was normal. Urology: Absent: dysuria, hematuria MUSCULOSKELETAL: Present: arthralgia, joint swelling-hand knees, Absent: back pain, neck pain HEMATOLOGIC/IMMUNOLOGIC: Absent: easy bleeding, easy bruising NEUROLOGIC: Absent: headache, seizure, blurry vision PSYCHIATRIC: Absent: anxiety, depression, suicidal or homicidal ideation, hallucinations. PHYSICAL EXAM: GENERAL: Awake, alert, and fully oriented, in no acute distress. HEAD: Normal with no signs of trauma. EYES: sclera anicteric, conjunctiva clear. NECK: Normal ROM, supple LUNGS: Clear to auscultation bilat anteriorly. No wheezes, and no crackles. No accessory muscle use. HEART: Regular rate and rhythm. No murmurs ABDOMEN: Soft, slight tender to upper abd, not distended, healed scar to RLQ. reducible umbilical hernia. MUSCULOSKELETAL: Normal ROM at all joints. No bony deformities or tenderness. UPPER EXTREMITIES: 2+ pulses, warm, well-perfused. No cyanosis. Cap refill <2 seconds. No peripheral edema. LOWER EXTREMITIES: 2+ pulses, warm, well-perfused. No calf tenderness. No peripheral edema. NEUROLOGICAL: Normal speech, gait steady. PSYCH: Cooperative. Good eye contact. Appropriate mood and affect. SKIN: Warm, dry, normal turgor, no rashes or lesions noted. Vital Signs Temperature 98.9 F 04/24/17 05:59 Pulse Rate 58 L 04/24/17 05:59 Respiratory Rate 18 04/24/17 05:59 Blood Pressure 121/51 04/24/17 05:59 O2 Sat by Pulse Oximetry (%) 99 04/22/17 20:17 Lab Results WBC 7.1 K/mm3 (4.0-10.0) 04/24/17 06:15 RBC 4.34 M/mm3 (4.00-5.60) 04/24/17 06:15 Hgb 11.7 GM/dL (11.7-16.9) 04/24/17 06:15 Hct 34.6 % (35.4-49) L 04/24/17 06:15 MCV 79.7 fl (80-96) L 04/24/17 06:15 MCHC 33.8 g/dl (32.0-35.9) 04/24/17 06:15 RDW 16.7 % (11.9-15.9) H 04/24/17 06:15 Plt Count 235 K/MM3 (134-434) 04/24/17 06:15 Sodium 139 mmol/L (136-145) 04/24/17 06:15 Potassium 3.9 mmol/L (3.5-5.1) 04/24/17 06:15 Chloride 102 mmol/L (98-107) 04/24/17 06:15 Carbon Dioxide 27 mmol/L (21-32) 04/24/17 06:15 Anion Gap 10 (8-16) 04/24/17 06:15 BUN 9 mg/dL (7-18) 04/24/17 06:15 Creatinine 0.8 mg/dL (0.7-1.3) 04/24/17 06:15 Random Glucose 98 mg/dL (74-106) D 04/24/17 06:15 Calcium 8.9 mg/dL (8.5-10.1) 04/24/17 06:15 INR 1.12 (0.82-1.09) 04/22/17 05:38 Laboratory Tests 04/23/17 04/24/17 07:00 06:15 Lipase [address] scan- cholelithiasis, swellling/inflammation of pancrease, no biliary duct dilatation MRI/MRCP: no CBD dilatation or stones seen Problem List - Problems (1) Acute pancreatitis Assessment/Plan: pancreatitis slighty improved in labs values today, recommend to continue NPO/ IV hydration Amylase ordered today and for the am as well as repeat lipase Code(s): K85.90 - ACUTE PANCREATITIS WITHOUT NECROSIS OR INFECTION, UNSP Qualifiers: Pancreatitis type: biliary Acute pancreatitis complication: no infection or necrosis Qualified Code(s): K85.10 - Biliary acute pancreatitis without necrosis or infection (2) Cholelithiasis Assessment/Plan: Pt is agreeable to lap светлана when pancreatitis improved Will continue to follow the patient Spoke with Dr. Leonardo and recommend to continue npo while pancreatic enzymes still elevated, the patients tenderness is minimal today Continue to monitor fever curve, overall stable Code(s): K80.20 - CALCULUS OF GALLBLADDER W/O CHOLECYSTITIS W/O OBSTRUCTION Visit type - Case Type Case Type: ED Admission - Emergency Emergency Visit: Yes ED Registration Date: 04/21/17 Care time: The patient presented to the Emergency Department on the above date and was hospitalized for further evaluation of their emergent condition. - New patient This patient is new to me today: Yes Date on this admission: 04/24/17 - Critical Care Critical Care patient: No
[2017-04-24] MEDS: PANTOPRAZOLE SODIUM 40 MG/100 ML PRE-DOCKED IVPB SCH (09:48)
[2017-04-24 10:53] LABS: AMYLASE 96 U/L (25-115)
--- NOTE | 2017-04-24 13:05 | PN ---
Progress Note (short form) - Note Progress Note: Attending Surgeon Patient seen and evaluated; concur w/a and p as outlined by CHANDLER Long; he still has some epigastric/RUQ tenderness; lipase still elevated; MRCP reviewed; concern over original CT findings of marked fluid in the peritoneal cavity secondary to pancreatitis; need for imaging f/u to document resolution of this prior to any planned surgical intervention; will plan for lap светлана for 04/29/17 ; d/w patient and REHABILITATION PROGRAM MANAGER Luzma. Setfan Leonardo MD FACS
--- NOTE | 2017-04-24 13:50 | PN ---
GI Progress Note Subjective: present at bedside Patient states feeling better in terms of abdominal pain No N/V MRCP failed to reveal dilated biliary tract. No description of acute pancreatitis either - Objective Vital Signs: Vital Signs Temperature 98.5 F 04/24/17 09:07 Pulse Rate 69 04/24/17 09:07 Respiratory Rate 20 04/24/17 09:07 Blood Pressure 138/87 04/24/17 09:07 O2 Sat by Pulse Oximetry (%) 99 04/22/17 20:17 Constitutional: Calm Eyes: No: Sclera Icterus Cardiovascular: Yes: Regular Rate and Rhythm Respiratory: Yes: CTA Bilaterally Gastrointestinal Inspection: No: Distention ...Auscultate: Yes: Normoactive Bowel Sounds ...Palpate: Yes: Tenderness Edema: No Neurological: Yes: Alert, Oriented Labs: CBC, BMP 04/24/17 06:15 04/24/17 06:15 INR, PTT INR 1.12 (0.82-1.09) 04/22/17 05:38 Hepatic Panel Total Bilirubin 1.3 mg/dL (0.2-1.0) H 04/24/17 06:15 AST 36 U/L (15-37) D 04/24/17 06:15 ALT 58 U/L (12-78) D 04/24/17 06:15 Alkaline Phosphatase 125 U/L (45-117) H 04/24/17 06:15 Albumin 3.1 g/dl (3.4-5.0) L 04/24/17 06:15 - ....Imaging MRI: Report Reviewed Problem List - Problems (1) Acute pancreatitis Assessment/Plan: Suspected gallstone pancreatitis Clinically improved Advancing to clears Triglycerides in AM Surgery following No need for abx from GI standpoint Reinforced need for alcohol cessation Code(s): K85.90 - ACUTE PANCREATITIS WITHOUT NECROSIS OR INFECTION, UNSP Qualifiers: Pancreatitis type: biliary Acute pancreatitis complication: no infection or necrosis Qualified Code(s): K85.10 - Biliary acute pancreatitis without necrosis or infection
--- NOTE | 2017-04-24 15:37 | PN ---
Progress Note, Physician History of Present Illness: doing much better no issues patients lipase is still on the higher side - Current Medication List Current Medications: Active Medications Acetaminophen (Tylenol Suppository -) 650 mg NC Q4H PRN PRN Reason: FEVER OR PAIN Heparin Sodium (Porcine) (Heparin -) 5,000 unit SQ TID LAINA Last Admin: 04/24/17 14:11 Dose: 5,000 unit Hydromorphone HCl (Dilaudid Injection -) 1 mg IVPB Q4H PRN PRN Reason: PAIN Last Admin: 04/23/17 21:52 Dose: 1 mg Lactated Ringer's (Lactated Ringers Solution) 1,000 mls @ 125 mls/hr IV ASDIR LAINA Last Admin: 04/24/17 12:24 Dose: 125 mls/hr Insulin Aspart (Novolog Vial Sliding Scale -) 1 vial SQ ACHS LAINA PRN Reason: Protocol Last Admin: 04/24/17 11:13 Dose: Not Given Ondansetron HCl (Zofran Injection) 4 mg IVPB Q6H PRN PRN Reason: NAUSEA Last Admin: 04/21/17 21:28 Dose: 4 mg Pantoprazole Sodium (Protonix 40mg Ivpb (Pre-Docked)) 40 mg IVPB DAILY LAINA Last Admin: 04/24/17 09:48 Dose: 40 mg Piperacillin Sod/Tazobactam Sod (Zosyn 3.375gm Ivpb (Pre-Docked)) 3.375 gm IVPB Q8H-IV LAINA PRN Reason: Protocol Last Admin: 04/24/17 09:06 Dose: 3.375 gm - Objective Vital Signs: Vital Signs Temperature 99.0 F 04/24/17 13:47 Pulse Rate 80 04/24/17 13:47 Respiratory Rate 20 04/24/17 13:47 Blood Pressure 132/84 04/24/17 13:47 O2 Sat by Pulse Oximetry (%) 99 04/22/17 20:17 Constitutional: Yes: No Distress, Calm Cardiovascular: Yes: Regular Rate and Rhythm Respiratory: Yes: Regular, CTA Bilaterally Gastrointestinal: Yes: Normal Bowel Sounds, Soft Musculoskeletal: Yes: WNL Extremities: Yes: WNL Neurological: Yes: Alert, Oriented Psychiatric: Yes: Alert, Oriented Labs: CBC, BMP 04/24/17 06:15 04/24/17 06:15 INR, PTT INR 1.12 (0.82-1.09) 04/22/17 05:38 Assessment/Plan roblem List - Problems (1) Acute pancreatitis Code(s): K85.90 - ACUTE PANCREATITIS WITHOUT NECROSIS OR INFECTION, UNSP Qualifiers: Pancreatitis type: biliary Acute pancreatitis complication: no infection or necrosis Qualified Code(s): K85.10 - Biliary acute pancreatitis without necrosis or infection 2 cholecystitis 3 dm plan will stop abx will watch patient without abx rest as per primary team
--- NOTE | 2017-04-24 17:32 | PN ---
Physical Exam: SUBJECTIVE: Patient seen and examined. He still has some mild pain. at bedside OBJECTIVE: Vital Signs Period Temp Pulse Resp BP Sys/Pollard Pulse Ox Last 24 Hr 98.5 F-99.0 F 58-80 18-20 118-138/51-87 PE Neuro: alert, awake, cn 2-12intact Pulm: CTAB CV: s1 s2 rrr no mrg Abd: epigastric tenderness, soft Ext: no le edema, warm CBCD WBC 7.1 K/mm3 (4.0-10.0) 04/24/17 06:15 RBC 4.34 M/mm3 (4.00-5.60) 04/24/17 06:15 Hgb 11.7 GM/dL (11.7-16.9) 04/24/17 06:15 Hct 34.6 % (35.4-49) L 04/24/17 06:15 MCV 79.7 fl (80-96) L 04/24/17 06:15 MCHC 33.8 g/dl (32.0-35.9) 04/24/17 06:15 RDW 16.7 % (11.9-15.9) H 04/24/17 06:15 Plt Count 235 K/MM3 (134-434) 04/24/17 06:15 MPV 7.5 fl (7.5-11.1) 04/24/17 06:15 CMP Sodium 139 mmol/L (136-145) 04/24/17 06:15 Potassium 3.9 mmol/L (3.5-5.1) 04/24/17 06:15 Chloride 102 mmol/L (98-107) 04/24/17 06:15 Carbon Dioxide 27 mmol/L (21-32) 04/24/17 06:15 Anion Gap 10 (8-16) 04/24/17 06:15 BUN 9 mg/dL (7-18) 04/24/17 06:15 Creatinine 0.8 mg/dL (0.7-1.3) 04/24/17 06:15 Creat Clearance w eGFR > 60 (>60) 04/24/17 06:15 Calcium 8.9 mg/dL (8.5-10.1) 04/24/17 06:15 Total Bilirubin 1.3 mg/dL (0.2-1.0) H 04/24/17 06:15 AST 36 U/L (15-37) D 04/24/17 06:15 ALT 58 U/L (12-78) D 04/24/17 06:15 Alkaline Phosphatase 125 U/L (45-117) H 04/24/17 06:15 Total Protein 6.4 g/dl (6.4-8.2) 04/24/17 06:15 Albumin 3.1 g/dl (3.4-5.0) L 04/24/17 06:15 04/24/17 06:15 Total Amylase 96 D Lipase 635 H Active Medications Generic Name Dose Route Start Last Admin Trade Name Freq PRN Reason Stop Dose Admin Acetaminophen 650 mg 04/22/17 18:30 Tylenol Suppository - ME Q4H PRN FEVER OR PAIN Heparin Sodium (Porcine) 5,000 unit 04/21/17 22:00 04/24/17 14:11 Heparin - SQ 5,000 unit TID LAINA Administration Hydromorphone HCl 1 mg 04/23/17 01:32 04/23/17 21:52 Dilaudid Injection - IVPB 1 mg Q4H PRN Administration PAIN Lactated Ringer's 1,000 mls @ 200 mls/hr 04/24/17 17:30 Lactated Ringers Solution IV ASDIR LAINA Insulin Aspart 1 vial 04/22/17 10:02 04/24/17 16:13 Novolog Vial Sliding Scale - SQ Not Given ACHS [facility] Protocol Ondansetron HCl 4 mg 04/21/17 16:19 04/21/17 21:28 Zofran Injection IVPB 4 mg Q6H PRN Administration NAUSEA Pantoprazole Sodium 40 mg 04/21/17 17:00 04/24/17 09:48 Protonix 40mg Ivpb (Pre-Docked) IVPB 40 mg DAILY LAINA Administration Assessment: 51 year old male with HTN, DM II admitted with acute pancreatitis Plan: 1. Acute Pancreatitis, likely gallstone related - Lipase downtrending, however still elevated - Increase LR 200cc/hr - MRCP negative for dilated biliary tract or stones, no report of acute pancreatitis - D/w surgery, d/t conflicting reports will need repeat CTAP on Saturday to re evaluate status fluid in peritoneal cavity - Likely cholecystectomy scheduled Saturday - Keep NPO - Stop antibiotics 2. DM II - Will stop ISS, BGM ACHS while NPO 3. HTN - BP stable - Hold home benazipril 4. Nutrition - NPO while lipase elevated, if improved start clears Visit type - Emergency Visit Emergency Visit: Yes ED Registration Date: 04/21/17 Care time: The patient presented to the Emergency Department on the above date and was hospitalized for further evaluation of their emergent condition. - New Patient This patient is new to me today: No - Critical Care Critical Care patient: No - Discharge Referral Referred to [facility] Med P.C.: No
[2017-04-25] MEDS: HEPARIN NA (PORCINE) 5,000 UNITS/ML 1ML VIAL SQ SCH ×3 (06:02→21:39)
[2017-04-25] MEDS: LACTATED RINGERS SOLUTION 1,000 ML IV SCH ×3 (06:05→22:33)
--- NOTE | 2017-04-25 08:37 | PN ---
Progress Note (short form) - Note Progress Note: Attending Surgeon Still w/ minimal pain; o/w negative VSS AF abdo-minimal tenderness; o/w negative. labs pending F/U CT pending IMP:resolving gallstone pancreatitis PLAN:Lap светлана 04/29/17. Stefan Leonardo MD FACS
[2017-04-25 08:41] LABS: BASOPHIL 0.7 % (0-2.0); EOSINOPHIL 2.8 % (0-4.5); MCHC 33.9 g/dl (32.0-35.9); MEAN CELL VOLUME 79.5 fl (80-96); MEAN PLT VOLUME 7.5 fl (7.5-11.1); NEUTROPHILS 52.9 % (42.8-82.8); PLATELET COUNT 264 K/MM3 (134-434); RDW 16.9 % (11.9-15.9); WHITE BLOOD COUNT 5.8 K/mm3 (4.0-10.0)
[2017-04-25 09:08] LABS: C-REACTIVE PROTEIN 7.7 MG/DL (0.00-0.3)
[2017-04-25 09:10] LABS: ALBUMIN 3.2 g/dl (3.4-5.0); AMYLASE 79 U/L (25-115); ANION GAP 12 (8-16); CALCIUM 8.8 mg/dL (8.5-10.1); CO2 26 mmol/L (21-32); GLUCOSE,RANDOM 84 mg/dL (74-106); SGOT/AST 36 U/L (15-37); SGPT/ALT 50 U/L (12-78)
[2017-04-25 09:11] LABS: ALK PHOS 127 U/L (45-117); CREATININE 0.6 mg/dL (0.7-1.3); TOT PROT 6.5 g/dl (6.4-8.2)
[2017-04-25] MEDS: PANTOPRAZOLE SODIUM 40 MG/100 ML PRE-DOCKED IVPB SCH (10:10)
--- NOTE | 2017-04-25 13:23 | PN ---
Physical Exam: SUBJECTIVE: Patient seen and examined at bedside. Feels well. Denies pain, nausea, vomiting. OBJECTIVE: Vital Signs Period Temp Pulse Resp BP Sys/Pollard Pulse Ox Last 24 Hr 97.7 F-99.0 F 55-80 14-20 122-137/74-84 97 GENERAL: The patient is awake, alert, and fully oriented, in no acute distress. HEAD: Normal with no signs of trauma. EYES: PERRL, extraocular movements intact, sclera anicteric, conjunctiva clear. No ptosis. LUNGS: Breath sounds equal, clear to auscultation bilaterally, no wheezes, no crackles, no accessory muscle use. HEART: Regular rate and rhythm, S1, S2 without murmur, rub or gallop. ABDOMEN: Soft, nontender, nondistended, normoactive bowel sounds, no guarding, no rebound EXTREMITIES: 2+ pulses, warm, well-perfused, no edema. NEUROLOGICAL: Cranial nerves II through XII grossly intact. Normal speech, gait not observed. Laboratory Results - last 24 hr 04/24/17 04/25/17 04/25/17 16:12 08:26 08:26 WBC 5.8 RBC 4.35 Hgb 11.7 Hct 34.6 L MCV 79.5 L MCHC 33.9 RDW 16.9 H Plt Count 264 MPV 7.5 Neutrophils % 52.9 Lymphocytes % 34.3 Monocytes % 9.3 Eosinophils % 2.8 Basophils % 0.7 Sodium 141 Potassium 3.9 Chloride 103 Carbon Dioxide 26 Anion Gap 12 BUN 8 Creatinine 0.6 L D Creat Clearance w eGFR > 60 POC Glucometer 98 Random Glucose 84 Calcium 8.8 Total Bilirubin 1.0 D AST 36 ALT 50 Alkaline Phosphatase 127 H C-Reactive Protein Total Protein 6.5 Albumin 3.2 L Triglycerides Total Amylase 79 Lipase 592 H 04/25/17 08:26 WBC RBC Hgb Hct MCV MCHC RDW Plt Count MPV Neutrophils % Lymphocytes % Monocytes % Eosinophils % Basophils % Sodium Potassium Chloride Carbon Dioxide Anion Gap BUN Creatinine Creat Clearance w eGFR POC Glucometer Random Glucose Calcium Total Bilirubin AST ALT Alkaline Phosphatase C-Reactive Protein 7.7 H Total Protein Albumin Triglycerides 182 H Total Amylase Lipase Active Medications Generic Name Dose Route Start Last Admin Trade Name Freq PRN Reason Stop Dose Admin Acetaminophen 650 mg 04/22/17 18:30 Tylenol Suppository - [place] Q4H PRN FEVER OR PAIN Heparin Sodium (Porcine) 5,000 unit 04/21/17 22:00 04/25/17 13:06 Heparin - SQ 5,000 unit TID LAINA Administration Hydromorphone HCl 1 mg 04/23/17 01:32 04/23/17 21:52 Dilaudid Injection - IVPB 1 mg Q4H PRN Administration PAIN Lactated Ringer's 1,000 mls @ 200 mls/hr 04/24/17 17:30 04/25/17 06:05 Lactated Ringers Solution IV 200 mls/hr ASDIR LAINA Administration Ondansetron HCl 4 mg 04/21/17 16:19 04/21/17 21:28 Zofran Injection IVPB 4 mg Q6H PRN Administration NAUSEA Pantoprazole Sodium 40 mg 04/21/17 17:00 04/25/17 10:10 Protonix 40mg Ivpb (Pre-Docked) IVPB 40 mg DAILY [facility] Administration 04/21/17 CTAP: acute pancreatitis; cholelithiasis 04/23/17 MRCP cholelithiasis; no duct dilitation, no choledocholilithiasis ASSESSMENT/PLAN 51 year old male with a PMH of HTN and NIDDM, admitted with acute pancreatitis. Acute gallstone pancreatitis --lipase downtrending --continue LR; f/u CXR in am due to high volume IV fluids --afebrile >48 hours, no leukocytosis, stable off antibiotics --needs repeat CTAP with contrast tomorrow 04/26 to evaluate fluid in peritoneal cavity --likely светлана on 04/29 --surgery following Type II diabetes, non-insulin dependent --Novolog sliding scale coverage Hypertension --start lisinopril (formulary equivalent of home benazapril) F/E/N Fluids: LR @ 200mL/hr Electrolytes: replete as indicated Nutrition: diabetic clears PT eval Daily PT DVT prophylaxis: subq heparin, oob, ambulation Dispo: continues to require inpatient care. Full Code. Visit type - Emergency Visit Emergency Visit: Yes ED Registration Date: 04/21/17 Care time: The patient presented to the Emergency Department on the above date and was hospitalized for further evaluation of their emergent condition. - New Patient This patient is new to me today: Yes Date on this admission: 04/25/17 - Critical Care Critical Care patient: No
--- NOTE | 2017-04-25 14:28 | PN ---
Progress Note, Physician History of Present Illness: patient stable minimal pain in room - Current Medication List Current Medications: Active Medications Acetaminophen (Tylenol Suppository -) 650 mg [place] Q4H PRN PRN Reason: FEVER OR PAIN Heparin Sodium (Porcine) (Heparin -) 5,000 unit SQ TID [facility] Last Admin: 04/25/17 13:06 Dose: 5,000 unit Hydromorphone HCl (Dilaudid Injection -) 1 mg IVPB Q4H PRN PRN Reason: PAIN Last Admin: 04/23/17 21:52 Dose: 1 mg Lactated Ringer's (Lactated Ringers Solution) 1,000 mls @ 200 mls/hr IV ASDIR [facility] Last Admin: 04/25/17 06:05 Dose: 200 mls/hr Ondansetron HCl (Zofran Injection) 4 mg IVPB Q6H PRN PRN Reason: NAUSEA Last Admin: 04/21/17 21:28 Dose: 4 mg Pantoprazole Sodium (Protonix 40mg Ivpb (Pre-Docked)) 40 mg IVPB DAILY [facility] Last Admin: 04/25/17 10:10 Dose: 40 mg - Objective Vital Signs: Vital Signs Temperature 98.4 F 04/25/17 13:49 Pulse Rate 55 L 04/25/17 13:49 Respiratory Rate 17 04/25/17 13:49 Blood Pressure 137/76 04/25/17 11:20 O2 Sat by Pulse Oximetry (%) 97 04/25/17 09:21 Constitutional: Yes: No Distress, Calm Cardiovascular: Yes: Regular Rate and Rhythm Respiratory: Yes: Regular, CTA Bilaterally Gastrointestinal: Yes: Normal Bowel Sounds, Soft Musculoskeletal: Yes: WNL Extremities: Yes: WNL Neurological: Yes: Alert, Oriented Psychiatric: Yes: Alert, Oriented Labs: CBC, BMP 04/25/17 08:26 04/25/17 08:26 INR, PTT INR 1.12 (0.82-1.09) 04/22/17 05:38 Assessment/Plan roblem List - Problems (1) Acute pancreatitis Code(s): K85.90 - ACUTE PANCREATITIS WITHOUT NECROSIS OR INFECTION, UNSP Qualifiers: Pancreatitis type: biliary Acute pancreatitis complication: no infection or necrosis Qualified Code(s): K85.10 - Biliary acute pancreatitis without necrosis or infection 2 cholecystitis 3 dm plan stable off of abx probable surgery on saturday keep watching can give a dose of abx before surgery
[2017-04-25] MEDS: INSULIN SLIDING SCALE (NOVOLOG) 1 VIAL SQ SCH (21:38)
[2017-04-26] MEDS: LACTATED RINGERS SOLUTION 1,000 ML IV SCH ×3 (03:00→15:14)
[2017-04-26] MEDS: HEPARIN NA (PORCINE) 5,000 UNITS/ML 1ML VIAL SQ SCH ×3 (05:40→21:43)
[2017-04-26] MEDS: INSULIN SLIDING SCALE (NOVOLOG) 1 VIAL SQ SCH ×4 (06:16→21:43)
[2017-04-26 08:26] LABS: BASOPHIL 0.8 % (0-2.0); EOSINOPHIL 3.1 % (0-4.5); MCH 26.9 pg (25.7-33.7); MCHC 34.1 g/dl (32.0-35.9); MEAN CELL VOLUME 78.9 fl (80-96); MEAN PLT VOLUME 7.4 fl (7.5-11.1); NEUTROPHILS 51.2 % (42.8-82.8); PLATELET COUNT 292 K/MM3 (134-434); RDW 16.8 % (11.9-15.9); WHITE BLOOD COUNT 5.7 K/mm3 (4.0-10.0)
[2017-04-26 08:53] LABS: ALBUMIN 3.2 g/dl (3.4-5.0); ALK PHOS 128 U/L (45-117); ANION GAP 9 (8-16); CALCIUM 9.1 mg/dL (8.5-10.1); CO2 27 mmol/L (21-32); CREATININE 0.8 mg/dL (0.7-1.3); GLUCOSE,RANDOM 126 mg/dL (74-106); SGOT/AST 54 U/L (15-37); SGPT/ALT 53 U/L (12-78); TOT PROT 6.9 g/dl (6.4-8.2)
[2017-04-26] MEDS ORDERED: PATIENT'S OWN MEDICATION (NON-FORMULARY) (Benazepril Hcl [Benazepril Hcl] 10 MG) PO SCH (10:00)
[2017-04-26] MEDS: PANTOPRAZOLE SODIUM 40 MG/100 ML PRE-DOCKED IVPB SCH (11:00)
[2017-04-26] MEDS: LISINOPRIL 10 MG TABLET (FP) PO SCH (11:00)
[2017-04-26] MEDS: FOLIC ACID 1 MG TABLET (FP) PO SCH (11:00)
--- NOTE | 2017-04-26 12:26 | PN ---
Progress Note (short form) - Note Progress Note: Surgery- Dr. Leonardo Patient seen and examined with family member at bedside. Patient is not having abdominal pain now. He is tolerating clear liquids. He has no complaints, denies fever, chills, nausea, vomiting. Last Vital Signs Temp Pulse Resp BP Pulse Ox 97.8 F 65 17 126/70 97 04/26/17 10:00 04/26/17 10:00 04/25/17 21:00 04/26/17 10:00 04/26/17 09:00 CBC, BMP 04/26/17 07:00 04/26/17 07:00 Hepatic Panel Total Bilirubin 1.0 mg/dL (0.2-1.0) 04/26/17 07:00 AST 54 U/L (15-37) H D 04/26/17 07:00 ALT 53 U/L (12-78) 04/26/17 07:00 Alkaline Phosphatase 128 U/L (45-117) H 04/26/17 07:00 Albumin 3.2 g/dl (3.4-5.0) L 04/26/17 07:00 Lipase: [address] abd/pelvis: Changes of pancreatitis have essentially resolved. No pseudocyst or surrounding fluid is seen. There is cholelithiasis without CT evidence of cholecystitis. Exam: Gen: NAD Abd: soft, nondistended, nontender Problem List - Problems (1) Acute pancreatitis Code(s): K85.90 - ACUTE PANCREATITIS WITHOUT NECROSIS OR INFECTION, UNSP Qualifiers: Pancreatitis type: biliary Acute pancreatitis complication: no infection or necrosis Qualified Code(s): K85.10 - Biliary acute pancreatitis without necrosis or infection (2) Cholelithiasis Assessment/Plan: Resolving gallstone pancreatitis Lipase trending down, CT showing resolution of pancreatitis Tolerating clear liquids Pain control Continue current management Plan for OR Sunday 04/29 for laparoscopic cholecystectomy with Dr. Leonardo Code(s): K80.20 - CALCULUS OF GALLBLADDER W/O CHOLECYSTITIS W/O OBSTRUCTION
--- NOTE | 2017-04-26 13:45 | PN ---
Physical Exam: SUBJECTIVE: Patient seen and examined. Voices no complaints. OBJECTIVE: Vital Signs Period Temp Pulse Resp BP Sys/Pollard Pulse Ox Last 24 Hr 97.8 F-98.4 F 55-65 17-17 118-126/70-70 97-97 GENERAL: The patient is awake, alert, and fully oriented, in no acute distress. HEAD: Normal with no signs of trauma. EYES: PERRL, extraocular movements intact, sclera anicteric, conjunctiva clear. No ptosis. LUNGS: Breath sounds equal, clear to auscultation bilaterally, no wheezes, no crackles, no accessory muscle use. HEART: Regular rate and rhythm, S1, S2 without murmur, rub or gallop. ABDOMEN: Soft, nontender, nondistended, normoactive bowel sounds, no guarding, no rebound EXTREMITIES: 2+ pulses, warm, well-perfused, no edema. NEUROLOGICAL: Cranial nerves II through XII grossly intact. Normal speech, gait not observed. Laboratory Results - last 24 hr 04/25/17 04/26/17 04/26/17 21:34 05:18 07:00 WBC RBC Hgb Hct MCV MCHC RDW Plt Count MPV Neutrophils % Lymphocytes % Monocytes % Eosinophils % Basophils % Sodium 139 Potassium 4.0 Chloride 103 Carbon Dioxide 27 Anion Gap 9 BUN 7 Creatinine 0.8 D Creat Clearance w eGFR > 60 POC Glucometer 105 108 Random Glucose 126 H D Hemoglobin A1c % Calcium 9.1 Magnesium 2.0 Total Bilirubin 1.0 AST 54 H D ALT 53 Alkaline Phosphatase 128 H Total Protein 6.9 Albumin 3.2 L Lipase 582 H 04/26/17 04/26/17 04/26/17 07:00 07:00 12:17 WBC 5.7 RBC 4.49 Hgb 12.1 Hct 35.4 MCV 78.9 L MCHC 34.1 RDW 16.8 H Plt Count 292 MPV 7.4 L Neutrophils % 51.2 Lymphocytes % 35.4 Monocytes % 9.5 Eosinophils % 3.1 Basophils % 0.8 Sodium Potassium Chloride Carbon Dioxide Anion Gap BUN Creatinine Creat Clearance w eGFR POC Glucometer 145 Random Glucose Hemoglobin A1c % 7.3 H Calcium Magnesium Total Bilirubin AST ALT Alkaline Phosphatase Total Protein Albumin Lipase Active Medications Generic Name Dose Route Start Last Admin Trade Name Freq PRN Reason Stop Dose Admin Acetaminophen 650 mg 04/22/17 18:30 Tylenol Suppository - [place] Q4H PRN FEVER OR PAIN Folic Acid 1 mg 04/26/17 10:00 04/26/17 11:00 Folic Acid - PO 1 mg DAILY LAINA Administration Heparin Sodium (Porcine) 5,000 unit 04/21/17 22:00 04/26/17 05:40 Heparin - SQ 5,000 unit TID [facility] Administration Lactated Ringer's 1,000 mls @ 200 mls/hr 04/24/17 17:30 04/26/17 08:03 Lactated Ringers Solution IV 200 mls/hr ASDIR LAINA Administration Insulin Aspart 1 vial 04/25/17 22:00 04/26/17 12:24 Novolog Vial Sliding Scale - SQ Not Given ACHS [facility] Protocol Lisinopril 10 mg 04/26/17 10:00 04/26/17 11:00 Prinivil PO 10 mg DAILY [facility]INA Administration Ondansetron HCl 4 mg 04/21/17 16:19 04/21/17 21:28 Zofran Injection IVPB 4 mg Q6H PRN Administration NAUSEA Pantoprazole Sodium 40 mg 04/21/17 17:00 04/26/17 11:00 Protonix 40mg Ivpb (Pre-Docked) IVPB 40 mg DAILY [facility]INA Administration Imaging 04/21/17 CTAP: acute pancreatitis; cholelithiasis 04/23/17 MRCP cholelithiasis; no duct dilitation, no choledocholilithiasis ASSESSMENT/PLAN 51 year old male with a PMH of HTN and NIDDM, admitted with acute pancreatitis. Acute gallstone pancreatitis, improved --04/26 CTAP: cholelithiasis, no sign of acute cholecystitis; pancreatitis has resolved, no pseudocyst or surrounding fluid --светлана scheduled for 04/29 Type II diabetes, non-insulin dependent --Novolog sliding scale coverage Hypertension --start lisinopril (formulary equivalent of home benazapril) F/E/N Fluids: PO intake adequate Electrolytes: replete as indicated Nutrition: full diabetic liquids; NPO Saturday night PT eval Daily PT DVT prophylaxis: subq heparin, oob, ambulation; stop subq heparin on Saturday for Saturday surgery Dispo: continues to require inpatient care. Full Code. Visit type - Emergency Visit Emergency Visit: Yes ED Registration Date: 04/21/17 Care time: The patient presented to the Emergency Department on the above date and was hospitalized for further evaluation of their emergent condition. - New Patient This patient is new to me today: No - Critical Care Critical Care patient: No
--- NOTE | 2017-04-26 14:52 | PN ---
Progress Note, Physician History of Present Illness: patient is stable no new issues patient for surgery on saturday - Current Medication List Current Medications: Active Medications Acetaminophen (Tylenol Suppository -) 650 mg [place] Q4H PRN PRN Reason: FEVER OR PAIN Folic Acid (Folic Acid -) 1 mg PO DAILY [facility] Last Admin: 04/26/17 11:00 Dose: 1 mg Heparin Sodium (Porcine) (Heparin -) 5,000 unit SQ TID [facility] Last Admin: 04/26/17 14:35 Dose: 5,000 unit Lactated Ringer's (Lactated Ringers Solution) 1,000 mls @ 200 mls/hr IV ASDIR [facility] Last Admin: 04/26/17 08:03 Dose: 200 mls/hr Insulin Aspart (Novolog Vial Sliding Scale -) 1 vial SQ ACHS [facility] PRN Reason: Protocol Last Admin: 04/26/17 12:24 Dose: Not Given Lisinopril (Prinivil) 10 mg PO DAILY [facility] Last Admin: 04/26/17 11:00 Dose: 10 mg Ondansetron HCl (Zofran Injection) 4 mg IVPB Q6H PRN PRN Reason: NAUSEA Last Admin: 04/21/17 21:28 Dose: 4 mg Pantoprazole Sodium (Protonix 40mg Ivpb (Pre-Docked)) 40 mg IVPB DAILY [facility] Last Admin: 04/26/17 11:00 Dose: 40 mg - Objective Vital Signs: Vital Signs Temperature 97.8 F 04/26/17 10:00 Pulse Rate 65 04/26/17 10:00 Respiratory Rate 17 04/25/17 21:00 Blood Pressure 126/70 04/26/17 10:00 O2 Sat by Pulse Oximetry (%) 97 04/26/17 09:00 Constitutional: Yes: No Distress, Calm Cardiovascular: Yes: Regular Rate and Rhythm Respiratory: Yes: Regular, CTA Bilaterally Gastrointestinal: Yes: Normal Bowel Sounds, Soft Musculoskeletal: Yes: WNL Extremities: Yes: WNL Neurological: Yes: Alert, Oriented Psychiatric: Yes: Alert, Oriented Labs: CBC, BMP 04/26/17 07:00 04/26/17 07:00 INR, PTT INR 1.12 (0.82-1.09) 04/22/17 05:38 Assessment/Plan roblem List - Problems (1) Acute pancreatitis Code(s): K85.90 - ACUTE PANCREATITIS WITHOUT NECROSIS OR INFECTION, UNSP Qualifiers: Pancreatitis type: biliary Acute pancreatitis complication: no infection or necrosis Qualified Code(s): K85.10 - Biliary acute pancreatitis without necrosis or infection 2 cholecystitis 3 dm plan stable off of abx await for surgery rest as per primary team
--- NOTE | 2017-04-26 17:10 | PN ---
GI Progress Note Subjective: GI Note: Pain free and hungry. CT reveals that the pancreatitis has resolved - Objective Vital Signs: Vital Signs Temperature 97.7 F 04/26/17 14:54 Pulse Rate 50 L 04/26/17 14:54 Respiratory Rate 18 04/26/17 14:54 Blood Pressure 143/60 04/26/17 14:54 O2 Sat by Pulse Oximetry (%) 97 04/26/17 09:00 CBC,CMP WBC 5.7 K/mm3 (4.0-10.0) 04/26/17 07:00 RBC 4.49 M/mm3 (4.00-5.60) 04/26/17 07:00 Hgb 12.1 GM/dL (11.7-16.9) 04/26/17 07:00 Hct 35.4 % (35.4-49) 04/26/17 07:00 MCV 78.9 fl (80-96) L 04/26/17 07:00 MCHC 34.1 g/dl (32.0-35.9) 04/26/17 07:00 RDW 16.8 % (11.9-15.9) H 04/26/17 07:00 Plt Count 292 K/MM3 (134-434) 04/26/17 07:00 MPV 7.4 fl (7.5-11.1) L 04/26/17 07:00 Neutrophils % 51.2 % (42.8-82.8) 04/26/17 07:00 Lymphocytes % 35.4 % (8-40) 04/26/17 07:00 Monocytes % 9.5 % (3.8-10.2) 04/26/17 07:00 Eosinophils % 3.1 % (0-4.5) 04/26/17 07:00 Basophils % 0.8 % (0-2.0) 04/26/17 07:00 Sodium 139 mmol/L (136-145) 04/26/17 07:00 Potassium 4.0 mmol/L (3.5-5.1) 04/26/17 07:00 Chloride 103 mmol/L (98-107) 04/26/17 07:00 Carbon Dioxide 27 mmol/L (21-32) 04/26/17 07:00 Anion Gap 9 (8-16) 04/26/17 07:00 BUN 7 mg/dL (7-18) 04/26/17 07:00 Creatinine 0.8 mg/dL (0.7-1.3) D 04/26/17 07:00 Creat Clearance w eGFR > 60 (>60) 04/26/17 07:00 POC Glucometer 145 UNITS (()) 04/26/17 12:17 Random Glucose 126 mg/dL (74-106) H D 04/26/17 07:00 Hemoglobin A1c % 7.3 % (4.8-6.0) H 04/26/17 07:00 Lactic Acid 1.1 mmol/L (0.4-2.0) 04/23/17 07:00 Calcium 9.1 mg/dL (8.5-10.1) 04/26/17 07:00 Phosphorus 2.9 mg/dL (2.5-4.9) 04/22/17 05:38 Magnesium 2.0 mg/dL (1.8-2.4) 04/26/17 07:00 Total Bilirubin 1.0 mg/dL (0.2-1.0) 04/26/17 07:00 AST 54 U/L (15-37) H D 04/26/17 07:00 ALT 53 U/L (12-78) 04/26/17 07:00 Alkaline Phosphatase 128 U/L (45-117) H 04/26/17 07:00 Creatine Kinase 118 IU/L (39-308) 04/21/17 13:43 Troponin I < 0.02 ng/ml (0.00-0.05) 04/21/17 13:43 C-Reactive Protein 7.7 MG/DL (0.00-0.3) H 04/25/17 08:26 Total Protein 6.9 g/dl (6.4-8.2) 04/26/17 07:00 Albumin 3.2 g/dl (3.4-5.0) L 04/26/17 07:00 Triglycerides 182 mg/dL (35-160) H 04/25/17 08:26 Total Amylase 79 U/L (25-115) 04/25/17 08:26 Lipase 582 U/L (73-393) H 04/26/17 07:00 Constitutional: Calm Eyes: Yes: Conjunctiva Clear ...Auscultate: Yes: Normoactive Bowel Sounds ...Palpate: Yes: Soft, Other (nontender) Labs: CBC, BMP 04/26/17 07:00 04/26/17 07:00 INR, PTT INR 1.12 (0.82-1.09) 04/22/17 05:38 Assessment/Plan Resolved biliary pancreatitis. Will start solids. Anticipate cholecystectomy on 04/29.
[2017-04-27] MEDS: HEPARIN NA (PORCINE) 5,000 UNITS/ML 1ML VIAL SQ SCH ×3 (05:58→22:03)
[2017-04-27] MEDS: INSULIN SLIDING SCALE (NOVOLOG) 1 VIAL SQ SCH ×4 (06:55→22:06)
[2017-04-27] MEDS: LISINOPRIL 10 MG TABLET (FP) PO SCH (11:14)
[2017-04-27] MEDS: PANTOPRAZOLE SODIUM 40 MG/100 ML PRE-DOCKED IVPB SCH (11:14)
[2017-04-27] MEDS: FOLIC ACID 1 MG TABLET (FP) PO SCH (11:14)
--- NOTE | 2017-04-27 13:49 | PN ---
Progress Note, Physician History of Present Illness: patient is stable no new issues - Current Medication List Current Medications: Active Medications Acetaminophen (Tylenol Suppository -) 650 mg [place] Q4H PRN PRN Reason: FEVER OR PAIN Folic Acid (Folic Acid -) 1 mg PO DAILY [facility] Last Admin: 04/27/17 11:14 Dose: 1 mg Heparin Sodium (Porcine) (Heparin -) 5,000 unit SQ TID [facility] Last Admin: 04/27/17 05:58 Dose: 5,000 unit Insulin Aspart (Novolog Vial Sliding Scale -) 1 vial SQ ACHS [facility] PRN Reason: Protocol Last Admin: 04/27/17 11:24 Dose: Not Given Lisinopril (Prinivil) 10 mg PO DAILY [facility] Last Admin: 04/27/17 11:14 Dose: 10 mg Ondansetron HCl (Zofran Injection) 4 mg IVPB Q6H PRN PRN Reason: NAUSEA Last Admin: 04/21/17 21:28 Dose: 4 mg Pantoprazole Sodium (Protonix 40mg Ivpb (Pre-Docked)) 40 mg IVPB DAILY [facility] Last Admin: 04/27/17 11:14 Dose: 40 mg - Objective Vital Signs: Vital Signs Temperature 98.2 F 04/27/17 05:39 Pulse Rate 56 L 04/27/17 05:39 Respiratory Rate 18 04/27/17 05:39 Blood Pressure 135/80 04/27/17 05:39 O2 Sat by Pulse Oximetry (%) 96 04/26/17 21:00 Constitutional: Yes: No Distress, Calm Neck: Yes: Supple Cardiovascular: Yes: Regular Rate and Rhythm Respiratory: Yes: Regular, CTA Bilaterally Musculoskeletal: Yes: WNL Extremities: Yes: WNL Neurological: Yes: Alert, Oriented Psychiatric: Yes: Alert Labs: CBC, BMP 04/26/17 07:00 04/26/17 07:00 INR, PTT INR 1.12 (0.82-1.09) 04/22/17 05:38 Assessment/Plan roblem List - Problems (1) Acute pancreatitis Code(s): K85.90 - ACUTE PANCREATITIS WITHOUT NECROSIS OR INFECTION, UNSP Qualifiers: Pancreatitis type: biliary Acute pancreatitis complication: no infection or necrosis Qualified Code(s): K85.10 - Biliary acute pancreatitis without necrosis or infection 2 cholecystitis 3 dm plan stable off of abx await for surgery rest as per primary team
--- NOTE | 2017-04-27 15:43 | PN ---
Physical Exam: SUBJECTIVE: Patient seen and examined. Observed ambulating in hallway. Has no pain. Occasional feeling of lightheadedness when gets up from lying position. OBJECTIVE: Vital Signs Period Temp Pulse Resp BP Sys/Pollard Pulse Ox Last 24 Hr 97.8 F-98.2 F 48-58 18-20 128-149/65-80 96 GENERAL: The patient is awake, alert, and fully oriented, in no acute distress. HEAD: Normal with no signs of trauma. EYES: PERRL, extraocular movements intact, sclera anicteric, conjunctiva clear. No ptosis. LUNGS: Breath sounds equal, clear to auscultation bilaterally, no wheezes, no crackles, no accessory muscle use. HEART: Regular rate and rhythm, S1, S2 without murmur, rub or gallop. ABDOMEN: Soft, nontender, nondistended, normoactive bowel sounds, no guarding, no rebound EXTREMITIES: 2+ pulses, warm, well-perfused, no edema. NEUROLOGICAL: Cranial nerves II through XII grossly intact. Normal speech, gait not observed. CBCD WBC 5.7 K/mm3 (4.0-10.0) 04/26/17 07:00 RBC 4.49 M/mm3 (4.00-5.60) 04/26/17 07:00 Hgb 12.1 GM/dL (11.7-16.9) 04/26/17 07:00 Hct 35.4 % (35.4-49) 04/26/17 07:00 MCV 78.9 fl (80-96) L 04/26/17 07:00 MCHC 34.1 g/dl (32.0-35.9) 04/26/17 07:00 RDW 16.8 % (11.9-15.9) H 04/26/17 07:00 Plt Count 292 K/MM3 (134-434) 04/26/17 07:00 MPV 7.4 fl (7.5-11.1) L 04/26/17 07:00 CMP Sodium 139 mmol/L (136-145) 04/26/17 07:00 Potassium 4.0 mmol/L (3.5-5.1) 04/26/17 07:00 Chloride 103 mmol/L (98-107) 04/26/17 07:00 Carbon Dioxide 27 mmol/L (21-32) 04/26/17 07:00 Anion Gap 9 (8-16) 04/26/17 07:00 BUN 7 mg/dL (7-18) 04/26/17 07:00 Creatinine 0.8 mg/dL (0.7-1.3) D 04/26/17 07:00 Creat Clearance w eGFR > 60 (>60) 04/26/17 07:00 Calcium 9.1 mg/dL (8.5-10.1) 04/26/17 07:00 Total Bilirubin 1.0 mg/dL (0.2-1.0) 04/26/17 07:00 AST 54 U/L (15-37) H D 04/26/17 07:00 ALT 53 U/L (12-78) 04/26/17 07:00 Alkaline Phosphatase 128 U/L (45-117) H 04/26/17 07:00 Total Protein 6.9 g/dl (6.4-8.2) 04/26/17 07:00 Albumin 3.2 g/dl (3.4-5.0) L 04/26/17 07:00 Laboratory Results - last 24 hr 04/26/17 04/26/17 04/27/17 16:58 21:42 05:30 POC Glucometer 117 108 122 04/27/17 11:21 POC Glucometer 119 Current Medications Generic Name Dose Route Start Last Admin Trade Name Nguyễnq PRN Reason Stop Dose Admin Folic Acid 1 mg 04/26/17 10:00 04/27/17 11:14 Folic Acid - PO 1 mg DAILY [facility] Administration Heparin Sodium (Porcine) 5,000 unit 04/21/17 22:00 04/27/17 15:12 Heparin - SQ 5,000 unit TID [facility] Administration Sodium Chloride 1,000 mls @ 50 mls/hr 04/27/17 15:45 Normal Saline - IV 04/28/17 15:45 ASDIR LAINA Insulin Aspart 1 vial 04/25/17 22:00 04/27/17 11:24 Novolog Vial Sliding Scale - SQ Not Given ACHS [facility] Protocol Lisinopril 10 mg 04/26/17 10:00 04/27/17 11:14 Prinivil PO 10 mg DAILY [facility] Administration Ondansetron HCl 4 mg 04/21/17 16:19 04/21/17 21:28 Zofran Injection IVPB 4 mg Q6H PRN Administration NAUSEA Pantoprazole Sodium 40 mg 04/21/17 17:00 04/27/17 11:14 Protonix 40mg Ivpb (Pre-Docked) IVPB 40 mg DAILY [facility] Administration Imaging 04/21/17 CTAP: acute pancreatitis; cholelithiasis 04/23/17 MRCP cholelithiasis; no duct dilitation, no choledocholilithiasis ASSESSMENT/PLAN 51 year old male with a PMH of HTN and NIDDM, admitted with acute pancreatitis. Acute gallstone pancreatitis, improved --04/26 CTAP: cholelithiasis, no sign of acute cholecystitis; pancreatitis has resolved, no pseudocyst or surrounding fluid --светлана scheduled for 04/29 Type II diabetes, non-insulin dependent --Novolog sliding scale coverage Hypertension --continue lisinopril Lightheaded --get orthostatics --gentle IV fluids F/E/N Fluids: NS @ 50mL/hr x 24 hours Electrolytes: replete as indicated Nutrition: soft diet, fat controlled; NPO Saturday night PT eval Daily PT DVT prophylaxis: subq heparin, oob, ambulation; stop subq heparin on Saturday for Saturday surgery Dispo: continues to require inpatient care. Full Code. encourage PO intake 1L x 1 low fat soft Visit type - Emergency Visit Emergency Visit: Yes ED Registration Date: 04/21/17 Care time: The patient presented to the Emergency Department on the above date and was hospitalized for further evaluation of their emergent condition. - New Patient This patient is new to me today: Yes Date on this admission: 04/27/17 - Critical Care Critical Care patient: No
[2017-04-27] MEDS ORDERED: ACETAMINOPHEN 325 MG TABLET (FP) PO PRN (18:16)
[2017-04-27] MEDS: SODIUM CHLORIDE 1,000 ML IV SCH (21:45)
[2017-04-28] MEDS: HEPARIN NA (PORCINE) 5,000 UNITS/ML 1ML VIAL SQ SCH (05:45)
[2017-04-28] MEDS: INSULIN SLIDING SCALE (NOVOLOG) 1 VIAL SQ SCH ×4 (06:44→21:40)
[2017-04-28] MEDS: PANTOPRAZOLE SODIUM 40 MG/100 ML PRE-DOCKED IVPB SCH (10:40)
[2017-04-28] MEDS: LISINOPRIL 10 MG TABLET (FP) PO SCH (10:40)
[2017-04-28] MEDS: FOLIC ACID 1 MG TABLET (FP) PO SCH (10:40)
--- NOTE | 2017-04-28 10:50 | PN ---
Physical Exam: SUBJECTIVE: Patient seen and examined at bedside. Resting comfortably watching a movie. Lightheadedness has resolved. OBJECTIVE: Vital Signs Period Temp Pulse Resp BP Sys/Pollard Pulse Ox Last 24 Hr 98 F-98.5 F 50-79 18-20 126-151/68-89 96 GENERAL: The patient is awake, alert, and fully oriented, in no acute distress. HEAD: Normal with no signs of trauma. EYES: PERRL, extraocular movements intact, sclera anicteric, conjunctiva clear. No ptosis. LUNGS: Breath sounds equal, clear to auscultation bilaterally, no wheezes, no crackles, no accessory muscle use. HEART: Regular rate and rhythm, S1, S2 without murmur, rub or gallop. ABDOMEN: Soft, nontender, nondistended, normoactive bowel sounds, no guarding, no rebound EXTREMITIES: 2+ pulses, warm, well-perfused, no edema. NEUROLOGICAL: Cranial nerves II through XII grossly intact. Normal speech, gait not observed. CBCD WBC 5.7 K/mm3 (4.0-10.0) 04/26/17 07:00 RBC 4.49 M/mm3 (4.00-5.60) 04/26/17 07:00 Hgb 12.1 GM/dL (11.7-16.9) 04/26/17 07:00 Hct 35.4 % (35.4-49) 04/26/17 07:00 MCV 78.9 fl (80-96) L 04/26/17 07:00 MCHC 34.1 g/dl (32.0-35.9) 04/26/17 07:00 RDW 16.8 % (11.9-15.9) H 04/26/17 07:00 Plt Count 292 K/MM3 (134-434) 04/26/17 07:00 MPV 7.4 fl (7.5-11.1) L 04/26/17 07:00 CMP Sodium 139 mmol/L (136-145) 04/26/17 07:00 Potassium 4.0 mmol/L (3.5-5.1) 04/26/17 07:00 Chloride 103 mmol/L (98-107) 04/26/17 07:00 Carbon Dioxide 27 mmol/L (21-32) 04/26/17 07:00 Anion Gap 9 (8-16) 04/26/17 07:00 BUN 7 mg/dL (7-18) 04/26/17 07:00 Creatinine 0.8 mg/dL (0.7-1.3) D 04/26/17 07:00 Creat Clearance w eGFR > 60 (>60) 04/26/17 07:00 Calcium 9.1 mg/dL (8.5-10.1) 04/26/17 07:00 Total Bilirubin 1.0 mg/dL (0.2-1.0) 04/26/17 07:00 AST 54 U/L (15-37) H D 04/26/17 07:00 ALT 53 U/L (12-78) 04/26/17 07:00 Alkaline Phosphatase 128 U/L (45-117) H 04/26/17 07:00 Total Protein 6.9 g/dl (6.4-8.2) 04/26/17 07:00 Albumin 3.2 g/dl (3.4-5.0) L 04/26/17 07:00 Laboratory Results - last 24 hr 04/27/17 04/27/17 04/27/17 11:21 16:55 22:05 POC Glucometer 119 127 138 04/28/17 05:44 POC Glucometer 141 Active Medications Generic Name Dose Route Start Last Admin Trade Name Freq PRN Reason Stop Dose Admin Acetaminophen 650 mg 04/27/17 18:16 Tylenol - PO Q6H PRN FEVER OR PAIN Folic Acid 1 mg 04/26/17 10:00 04/28/17 10:40 Folic Acid - PO 1 mg DAILY LAINA Administration Heparin Sodium (Porcine) 5,000 unit 04/21/17 22:00 04/28/17 05:45 Heparin - SQ 5,000 unit TID LAINA Administration Sodium Chloride 1,000 mls @ 50 mls/hr 04/27/17 15:45 04/27/17 21:45 Normal Saline - IV 04/28/17 15:45 50 mls/hr ASDIR LAINA Administration Insulin Aspart 1 vial 04/25/17 22:00 04/28/17 06:44 Novolog Vial Sliding Scale - SQ Not Given ACHS [facility] Protocol Lisinopril 10 mg 04/26/17 10:00 04/28/17 10:40 Prinivil PO 10 mg DAILY LAINA Administration Ondansetron HCl 4 mg 04/21/17 16:19 04/21/17 21:28 Zofran Injection IVPB 4 mg Q6H PRN Administration NAUSEA Pantoprazole Sodium 40 mg 04/21/17 17:00 04/28/17 10:40 Protonix 40mg Ivpb (Pre-Docked) IVPB 40 mg DAILY LAINA Administration Imaging 04/21/17 CTAP: acute pancreatitis; cholelithiasis 04/23/17 MRCP cholelithiasis; no duct dilitation, no choledocholilithiasis ASSESSMENT/PLAN 51 year old male with a PMH of HTN and NIDDM, admitted with acute pancreatitis. Acute gallstone pancreatitis, improved --04/26 CTAP: cholelithiasis, no sign of acute cholecystitis; pancreatitis has resolved, no pseudocyst or surrounding fluid --светлана scheduled for 04/29 Type II diabetes, non-insulin dependent --Novolog sliding scale coverage Hypertension --continue lisinopril Lightheadedness, resolved F/E/N Fluids: PO intake adequate Electrolytes: replete as indicated Nutrition: soft diet, fat controlled; NPO tonight PT eval Daily PT DVT prophylaxis: subq heparin stopped for surgery tomorrow, last dose 04/28 @ 5: 45am Dispo: continues to require inpatient care. Full Code. Visit type - Emergency Visit Emergency Visit: Yes ED Registration Date: 04/21/17 Care time: The patient presented to the Emergency Department on the above date and was hospitalized for further evaluation of their emergent condition. - New Patient This patient is new to me today: No - Critical Care Critical Care patient: No
[2017-04-28] MEDS ORDERED: INSULIN (NOVOLOG) ASPART 100 UNITS/ML 10ML VIAL ONE (11:48)
[2017-04-29] MEDS: SODIUM CHLORIDE 1,000 ML IV SCH (00:30)
[2017-04-29] MEDS: INSULIN SLIDING SCALE (NOVOLOG) 1 VIAL SQ SCH ×4 (06:23→21:45)
[2017-04-29 08:12] LABS: BASOPHIL 0.7 % (0-2.0); EOSINOPHIL 2.7 % (0-4.5); MCH 26.5 pg (25.7-33.7); MCHC 33.3 g/dl (32.0-35.9); MEAN CELL VOLUME 79.7 fl (80-96); MEAN PLT VOLUME 7.6 fl (7.5-11.1); NEUTROPHILS 47.4 % (42.8-82.8); PLATELET COUNT 332 K/MM3 (134-434); RDW 16.9 % (11.9-15.9); WHITE BLOOD COUNT 5.7 K/mm3 (4.0-10.0)
[2017-04-29 08:51] LABS: ALBUMIN 3.5 g/dl (3.4-5.0); ANION GAP 9 (8-16); CALCIUM 8.9 mg/dL (8.5-10.1); CO2 26 mmol/L (21-32); CREATININE 0.8 mg/dL (0.7-1.3); GLUCOSE,RANDOM 172 mg/dL (74-106); SGOT/AST 74 U/L (15-37); SGPT/ALT 68 U/L (12-78)
[2017-04-29 08:53] LABS: ALK PHOS 111 U/L (45-117); BILIRUBIN,TOTAL 0.6 mg/dL (0.2-1.0); TOT PROT 7.1 g/dl (6.4-8.2)
[2017-04-29] MEDS: LISINOPRIL 10 MG TABLET (FP) PO SCH (09:19)
[2017-04-29] MEDS: PANTOPRAZOLE SODIUM 40 MG/100 ML PRE-DOCKED IVPB SCH (09:19)
--- NOTE | 2017-04-29 12:54 | PN ---
Progress Note, Physician History of Present Illness: stable no new issues patient go to or now - Current Medication List Current Medications: Active Medications Acetaminophen (Tylenol -) 650 mg PO Q6H PRN PRN Reason: FEVER OR PAIN Folic Acid (Folic Acid -) 1 mg PO DAILY [facility] Last Admin: 04/28/17 10:40 Dose: 1 mg Insulin Aspart (Novolog Vial Sliding Scale -) 1 vial SQ ACHS LAINA PRN Reason: Protocol Last Admin: 04/29/17 10:04 Dose: Not Given Lisinopril (Prinivil) 10 mg PO DAILY [facility] Last Admin: 04/29/17 09:19 Dose: 10 mg Ondansetron HCl (Zofran Injection) 4 mg IVPB Q6H PRN PRN Reason: NAUSEA Last Admin: 04/21/17 21:28 Dose: 4 mg Pantoprazole Sodium (Protonix 40mg Ivpb (Pre-Docked)) 40 mg IVPB DAILY [facility] Last Admin: 04/29/17 09:19 Dose: 40 mg - Objective Vital Signs: Vital Signs Temperature 98.2 F 04/29/17 10:00 Pulse Rate 50 L 04/29/17 10:00 Respiratory Rate 16 04/29/17 10:00 Blood Pressure 150/98 04/29/17 10:00 O2 Sat by Pulse Oximetry (%) 98 04/29/17 09:00 Constitutional: Yes: No Distress, Calm Cardiovascular: Yes: Regular Rate and Rhythm Respiratory: Yes: Regular, CTA Bilaterally Gastrointestinal: Yes: Normal Bowel Sounds, Soft Musculoskeletal: Yes: WNL Extremities: Yes: WNL Neurological: Yes: Alert, Oriented Psychiatric: Yes: Alert, Oriented Labs: CBC, BMP 04/29/17 06:00 04/29/17 06:00 INR, PTT INR 1.12 (0.82-1.09) 04/22/17 05:38 Assessment/Plan roblem List - Problems (1) Acute pancreatitis Code(s): K85.90 - ACUTE PANCREATITIS WITHOUT NECROSIS OR INFECTION, UNSP Qualifiers: Pancreatitis type: biliary Acute pancreatitis complication: no infection or necrosis Qualified Code(s): K85.10 - Biliary acute pancreatitis without necrosis or infection 2 cholecystitis 3 dm plan for surgery today continue current mgmt rest as per primary
[2017-04-29] MEDS ORDERED: ROCURONIUM BROMIDE 50 MG/5 ML VIAL ONE ×2 (13:36→14:12)
[2017-04-29] MEDS ORDERED: MIDAZOLAM HCL 2 MG/2 ML SINGLE DOSE VIAL ONE (13:36)
[2017-04-29] MEDS ORDERED: PROPOFOL 20 ML ONE ×2 (13:36)
[2017-04-29] MEDS ORDERED: BUPIVACAINE HCL/PF 0.5% (5MG/ML) 10 ML VIAL ONE (14:07)
[2017-04-29] MEDS ORDERED: GLYCOPYRROLATE 0.2 MG/1 ML VIAL ONE (14:44)
[2017-04-29] MEDS ORDERED: NEOSTIGMINE METHYLSULFATE 0.5 MG/ML - 10 ML MDV ONE (14:44)
[2017-04-29] MEDS ORDERED: BUPIVACAINE HCL/PF 0.5% (5MG/ML) 10 ML VIAL IJ ONE (14:50)
--- NOTE | 2017-04-29 15:07 | OP ---
Operative Note - Note: Operative Date: 04/29/17 Pre-Operative Diagnosis: gallstone pancreatitis/cholelithiasis Operation: lap светлана Findings: cholelithiasis/adhesions Post-Operative Diagnosis: Same as Pre-op Surgeon: Stefan Leonardo Material Man: Suzanna Melton Anesthesia: General Specimens Removed: gallbladder and contents Estimated Blood Loss (mls): 20
[2017-04-29] MEDS ORDERED: IBUPROFEN 800 MG/8 ML IJ IVPB PRN ×2 (15:19→15:38)
[2017-04-29] MEDS ORDERED: HYDROmorphone HCL CARPU-JECT 2 MG/1 ML DISP.SYRIN IVPUSH PRN (15:19)
[2017-04-29] MEDS ORDERED: ACETAMINOPHEN 1000 MG/100 ML VIAL (NON FORMULARY) IVPB PRN ×2 (15:20→15:38)
--- NOTE | 2017-04-29 15:21 | SURG ---
Surgery Party Plan Sales Agent Note Party Plan Sales Agent: Suzanna Melton PA-C Date of Service: 04/29/17 Diagnosis: gallstone pancreatitis/cholelithiasis Procedure: laparoscopic cholecystectomy I was present for the entirety of the operative procedure. For further detail, please refer to operative report. Visit type - Case Type Case Type: ED Admission
[2017-04-29] MEDS ORDERED: LACTATED RINGERS SOLUTION 1,000 ML IV SCH (15:30)
[2017-04-29] MEDS ORDERED: ONDANSETRON 4 MG/2 ML VIAL IVPB PRN (15:38)
[2017-04-29] MEDS ORDERED: ACETAMINOPHEN 325 MG TABLET (FP) PO PRN (15:38)
[2017-04-29] MEDS: HYDROmorphone HCL CARPU-JECT 2 MG/1 ML DISP.SYRIN IVPUSH PRN ×2 (15:45→15:55)
[2017-04-29] MEDS ORDERED: IBUPROFEN 800 MG/8 ML IJ IVPB ONE (16:18)
--- NOTE | 2017-04-29 17:12 | PN ---
Physical Exam: SUBJECTIVE: Patient seen and examined. He is s/p laparoscopic cholecystectomy OBJECTIVE: s/p laparoscopic cholecystectomy today, no pain on exam abdominal bandages c/d/i Vital Signs Period Temp Pulse Resp BP Sys/Pollard Pulse Ox Last 24 Hr 98.2 F-98.5 F 50-78 12-20 121-154/67-98 96-100 GENERAL: The patient is awake, alert, and fully oriented, in no acute distress. HEAD: Normal with no signs of trauma. EYES: PERRL, extraocular movements intact, sclera anicteric, conjunctiva clear. No ptosis. LUNGS: Breath sounds equal, clear to auscultation bilaterally, no wheezes, no crackles, no accessory muscle use. HEART: Regular rate and rhythm, S1, S2 without murmur, rub or gallop. ABDOMEN: Soft, nontender, dressings c/d/i EXTREMITIES: 2+ pulses, warm, well-perfused, no edema. NEUROLOGICAL: Cranial nerves II through XII grossly intact. Normal speech, gait not observed. Laboratory Results - last 24 hr 04/28/17 04/28/17 04/29/17 17:02 21:39 05:25 WBC RBC Hgb Hct MCV MCHC RDW Plt Count MPV Neutrophils % Lymphocytes % Monocytes % Eosinophils % Basophils % Sodium Potassium Chloride Carbon Dioxide Anion Gap BUN Creatinine Creat Clearance w eGFR POC Glucometer 191 142 165 Random Glucose Calcium Magnesium Total Bilirubin AST ALT Alkaline Phosphatase Total Protein Albumin 04/29/17 04/29/17 04/29/17 06:00 06:00 10:04 WBC 5.7 RBC 4.63 Hgb 12.3 Hct 36.9 MCV 79.7 L MCHC 33.3 RDW 16.9 H Plt Count 332 MPV 7.6 Neutrophils % 47.4 Lymphocytes % 41.8 H Monocytes % 7.4 Eosinophils % 2.7 Basophils % 0.7 Sodium 140 Potassium 4.2 Chloride 105 Carbon Dioxide 26 Anion Gap 9 BUN 8 Creatinine 0.8 Creat Clearance w eGFR > 60 POC Glucometer 149 Random Glucose 172 H D Calcium 8.9 Magnesium 2.0 Total Bilirubin 0.6 D AST 74 H D ALT 68 D Alkaline Phosphatase 111 Total Protein 7.1 Albumin 3.5 Active Medications Generic Name Dose Route Start Last Admin Trade Name Freq PRN Reason Stop Dose Admin Acetaminophen 1,000 mg 04/29/17 15:38 Ofirmev Injection - IVPB 04/30/17 09:21 Q6H PRN FEVER OR PAIN Acetaminophen 650 mg 04/29/17 15:38 Tylenol - PO Q6H PRN FEVER OR PAIN Folic Acid 1 mg 04/30/17 10:00 Folic Acid - PO DAILY LAINA Hydromorphone HCl 2 mg 04/29/17 15:38 04/29/17 15:45 Dilaudid Injection - IVPUSH 05/02/17 15:39 1 mg [id number] PRN Administration PAIN Lactated Ringer's 1,000 mls @ 125 mls/hr 04/29/17 15:38 Lactated Ringers Solution IV ASDIR LAINA Ibuprofen 800 mg 04/29/17 15:38 Caldolor Injection - IVPB Q6H PRN PAIN Insulin Aspart 1 vial 04/29/17 16:30 Novolog Vial Sliding Scale - SQ ACHS LAINA Protocol Lisinopril 10 mg 04/30/17 10:00 Prinivil PO DAILY [facility] Ondansetron HCl 4 mg 04/29/17 15:38 Zofran Injection IVPB Q6H PRN NAUSEA Oxycodone HCl 5 mg 04/29/17 15:28 Roxicodone - PO Q4H PRN PAIN Pantoprazole Sodium 40 mg 04/30/17 10:00 Protonix 40mg Ivpb (Pre-Docked) IVPB DAILY [facility] ASSESSMENT/PLAN: Patient is a 51 year old male with a significant past medical history of hypertension and diabetes mellitus. He was admitted on 04/21/2017 with acute pancreatitis. Imagin04/21/17 CTAP: acute pancreatitis; cholelithiasis 04/23/17 MRCP cholelithiasis; no duct dilitation, no choledocholilithiasis GI: Acute gallstone pancreatitis - s/p laparoscopic cholecystectomy today Assessment/Plan: Monitor labs, vitals, continue IV hydration Monitor pain, SCDs Surgery following On clear liquid diet Endocrine: Type II diabetes, non-insulin dependent Assessment/Plan: Novolog sliding scale coverage Monitor BGMs Cardiology: Hypertension Assessment/Plan: continue lisinopril Monitor BP F.E.N. Fluids: LR Electrolytes: monitor labs Nutrition:Clears DVT prophylaxis: SCDs now Heparin restart tonight Disposition: continues to require inpatient care. Full Code. Visit type - Emergency Visit Emergency Visit: Yes ED Registration Date: 04/21/17 Care time: The patient presented to the Emergency Department on the above date and was hospitalized for further evaluation of their emergent condition. - New Patient This patient is new to me today: Yes Date on this admission: 04/29/17 - Critical Care Critical Care patient: No - Discharge Referral Referred to [facility] No
[2017-04-29] MEDS: LACTATED RINGERS SOLUTION 1,000 ML IV SCH (17:16)
[2017-04-29] MEDS ORDERED: INSULIN (NOVOLOG) ASPART 100 UNITS/ML 10ML VIAL ONE ×2 (18:11→21:39)
[2017-04-29] MEDS: oxyCODONE HCL 5 MG TABLET PO PRN ×2 (18:17→22:27)
[2017-04-29] MEDS: HEPARIN NA (PORCINE) 5,000 UNITS/ML 1ML VIAL SQ SCH (21:46)
[2017-04-30] MEDS: LACTATED RINGERS SOLUTION 1,000 ML IV SCH (03:13)
[2017-04-30] MEDS: INSULIN SLIDING SCALE (NOVOLOG) 1 VIAL SQ SCH ×2 (06:12→11:56)
[2017-04-30 08:55] LABS: BASOPHIL 0.5 % (0-2.0); EOSINOPHIL 1.5 % (0-4.5); MCH 26.7 pg (25.7-33.7); MCHC 33.1 g/dl (32.0-35.9); MEAN CELL VOLUME 80.5 fl (80-96); MEAN PLT VOLUME 7.5 fl (7.5-11.1); NEUTROPHILS 56.9 % (42.8-82.8); PLATELET COUNT 283 K/MM3 (134-434); WHITE BLOOD COUNT 7.4 K/mm3 (4.0-10.0)
[2017-04-30 09:21] LABS: ALBUMIN 3.2 g/dl (3.4-5.0); ANION GAP 6 (8-16); CALCIUM 8.6 mg/dL (8.5-10.1); CO2 31 mmol/L (21-32); GLUCOSE,RANDOM 123 mg/dL (74-106)
[2017-04-30 09:22] VITALS: BP 134/53; PULSE 60; TEMP 98.4
[2017-04-30 09:26] LABS: ALK PHOS 102 U/L (45-117); BILIRUBIN,TOTAL 0.7 mg/dL (0.2-1.0); CREATININE 0.8 mg/dL (0.7-1.3); SGOT/AST 97 U/L (15-37); SGPT/ALT 76 U/L (12-78); TOT PROT 6.5 g/dl (6.4-8.2)
[2017-04-30] MEDS ORDERED: FOLIC ACID 1 MG TABLET (FP) PO SCH (10:00)
[2017-04-30] MEDS ORDERED: LISINOPRIL 10 MG TABLET (FP) PO SCH (10:00)
[2017-04-30] MEDS ORDERED: PANTOPRAZOLE SODIUM 40 MG/100 ML PRE-DOCKED IVPB SCH (10:00)
[2017-04-30] MEDS: HEPARIN NA (PORCINE) 5,000 UNITS/ML 1ML VIAL SQ SCH (10:22)
--- NOTE | 2017-04-30 10:49 | PN ---
Progress Note (short form) - Note Progress Note: Surgery- Dr. Leonardo Patient seen and examined. Patient is doing well with only a small amount of pain. He is tolerating his clear liquid diet. He is passing gas and urinating without issue. He denies fever, chills, nausea, vomiting. Last Vital Signs Temp Pulse Resp BP Pulse Ox 98.4 F 60 20 134/53 97 04/30/17 09:21 04/30/17 09:21 04/30/17 09:26 04/30/17 09:21 04/30/17 09:26 CBC, BMP 04/30/17 07:20 04/30/17 07:20 Exam: Gen: NAD, pleasant and cooperative Abd: soft, nondistended, minimal tenderness, dressings over port sites c/d/i LE: calves soft, nontender Problem List - Problems (1) Acute pancreatitis Code(s): K85.90 - ACUTE PANCREATITIS WITHOUT NECROSIS OR INFECTION, UNSP Qualifiers: Pancreatitis type: biliary Acute pancreatitis complication: no infection or necrosis Qualified Code(s): K85.10 - Biliary acute pancreatitis without necrosis or infection (2) Cholelithiasis Assessment/Plan: POD#1 s/p laparoscopic cholecystectomy Advance diet as tolerated to diabetic diet, DC IV fluids Pain management with oral pain medication OOB, DVT prophylaxis Follow-up with Dr. Leonardo as outpt for post-op visit Discussed with Dr. Leonardo and agrees Code(s): K80.20 - CALCULUS OF GALLBLADDER W/O CHOLECYSTITIS W/O OBSTRUCTION
--- NOTE | 2017-04-30 11:05 | OP ---
DATE OF OPERATION: 04/29/2017 PREOPERATIVE DIAGNOSES: Gallstone pancreatitis and cholelithiasis. POSTOPERATIVE DIAGNOSES: Gallstone pancreatitis and cholelithiasis. PROCEDURE: Laparoscopic cholecystectomy. SURGEON: Stefan Leonardo MD TYPESETTING MACHINE OPERATOR/TENDER: Suzanna Melton PA-C ANESTHESIA: General. OPERATIVE FINDINGS: There was cholelithiasis. Normal anatomy in the triangle of [place]ot. There was evidence of mild inflammation of the gallbladder. There were adhesions from previous open appendectomy in the right lower quadrant. The rest of the findings were unremarkable. DESCRIPTION OF PROCEDURE: The patient was placed on the operating table in the supine position, and after the induction of general anesthesia, the patient's abdomen was prepped with ChloraPrep and draped in sterile fashion. A timeout was taken and pneumoperitoneum established above the umbilicus using a Veress needle to a pressure of 15 mmHg. A 5-mm port was then placed and laparoscopy carried out, and the previously noted findings were observed. Additional 5-mm lateral ports and a subxiphoid 12-mm port were placed, and then, the gallbladder was placed on cephalad and lateral traction. Dissection was begun in the triangle of [place]ot. Adherent omentum was taken down using a combination of electrocautery and blunt dissection. The neck of the gallbladder was identified and the peritoneum over it opened medially and laterally using electrocautery. The cystic duct was identified coursing from the neck of the gallbladder distally to the common bile duct. It was dissected bluntly for length proximally and distally. Similarly, the artery was identified after the cystic duct lymph node was bluntly dissected away from it. It was similarly dissected for length. A critical view of safety was taken, and then, the duct and artery were sequentially clipped twice distally and twice proximally with large hemoclips and divided using the EndoShears. Hemostasis was checked for and noted to be good, and then, the gallbladder was removed in a retrograde fashion from the liver bed using electrocautery. Prior to removal from the edge of the liver, hemostasis was again verified. The gallbladder was then removed from the edge of the liver, placed in a specimen retrieval bag, and brought out through the subxiphoid port. Pneumoperitoneum was re-established, and there was no evidence of bleeding. At this point, all ports were removed under laparoscopic vision without evidence of bleeding from the port sites, and the pneumoperitoneum was evacuated through the port sites. Each port site was infiltrated with 1% Xylocaine, 50% Marcaine in equal concentration, and the incisions closed with 4-0 Biosyn in a subcuticular continuous fashion, followed by Steri-Strips and Band-Aid dressings. The patient was then transferred to the postanesthesia care unit in stable condition, awake and alert. ESTIMATED BLOOD LOSS: 20 mL. REPLACEMENTS: Crystalloid. DRAINS: None. SPECIMENS: Gallbladder and contents to Pathology. I, Stefan Leonardo, was physically present in the operating room from the time the patient was placed on the operating table until he was transferred to the postanesthesia care unit in my accompaniment. MD NELY Farrell/[id number]
--- NOTE | 2017-04-30 12:33 | DS ---
Physical Exam: SUBJECTIVE: Patient seen and examined. He denies pain. Tolerated breakfast and lunch. Denies any nausea or vomiting OBJECTIVE: Patient sitting up, eating lunch Surgical site c/d/i. Vital Signs Period Temp Pulse Resp BP Sys/Pollard Pulse Ox Last 24 Hr 98.3 F-98.6 F 52-78 12-20 121-137/53-77 97-100 PHYSICAL EXAM GENERAL: The patient is awake, alert, and fully oriented, in no acute distress. HEAD: Normal with no signs of trauma. EYES: PERRL, extraocular movements intact, sclera anicteric, conjunctiva clear. No ptosis. LUNGS: Breath sounds equal, clear to auscultation bilaterally, no wheezes, no crackles, no accessory muscle use. HEART: Regular rate and rhythm, S1, S2 without murmur, rub or gallop. ABDOMEN: Soft, nontender, dressings c/d/i EXTREMITIES: 2+ pulses, warm, well-perfused, no edema. NEUROLOGICAL: Cranial nerves II through XII grossly intact. Normal speech, gait not observed. LABS Laboratory Results - last 24 hr 04/29/17 04/29/17 04/30/17 18:08 21:37 05:48 WBC RBC Hgb Hct MCV MCHC RDW Plt Count MPV Neutrophils % Lymphocytes % Monocytes % Eosinophils % Basophils % Sodium Potassium Chloride Carbon Dioxide Anion Gap BUN Creatinine Creat Clearance w eGFR POC Glucometer 181 170 124 Random Glucose Calcium Total Bilirubin AST ALT Alkaline Phosphatase Total Protein Albumin Lipase 04/30/17 04/30/17 04/30/17 07:20 07:20 07:20 WBC 7.4 RBC 4.26 Hgb 11.4 L Hct 34.3 L MCV 80.5 MCHC 33.1 RDW 17.0 H Plt Count 283 MPV 7.5 Neutrophils % 56.9 D Lymphocytes % 33.6 Monocytes % 7.5 Eosinophils % 1.5 Basophils % 0.5 Sodium 141 Potassium 4.2 Chloride 104 Carbon Dioxide 31 Anion Gap 6 L BUN 8 Creatinine 0.8 Creat Clearance w eGFR > 60 POC Glucometer Random Glucose 123 H D Calcium 8.6 Total Bilirubin 0.7 AST 97 H D ALT 76 Alkaline Phosphatase 102 Total Protein 6.5 Albumin 3.2 L Lipase 613 H 04/30/17 11:41 WBC RBC Hgb Hct MCV MCHC RDW Plt Count MPV Neutrophils % Lymphocytes % Monocytes % Eosinophils % Basophils % Sodium Potassium Chloride Carbon Dioxide Anion Gap BUN Creatinine Creat Clearance w eGFR POC Glucometer 159 Random Glucose Calcium Total Bilirubin AST ALT Alkaline Phosphatase Total Protein Albumin Lipase HOSPITAL COURSE: Date of Admission:04/21/17 Date of Discharge: 04/30/17 ASSESSMENT/PLAN: Patient is a 51 year old male with a significant past medical history of hypertension and diabetes mellitus. He was admitted on 04/21/2017 with acute pancreatitis. Imagin04/21/17 CTAP: acute pancreatitis; cholelithiasis 04/23/17 MRCP cholelithiasis; no duct dilitation, no choledocholilithiasis GI: Acute gallstone pancreatitis - s/p laparoscopic cholecystectomy - POD#1 Assessment/Plan: Cleared by surgery for d/c patient denies pain, tolerating meals, no nausea vomiting abdomen soft, non tender, non distended Endocrine: Type II diabetes, non-insulin dependent Assessment/Plan: Monitor BGMs Cardiology: Hypertension - controlled Assessment/Plan: continue home dose benezepril Disposition: Cleared by surgery for d/c. Patient to be d/c home with post surgical follow up with Dr. Leonardo. Minutes to complete discharge: 60 Discharge Summary Reason For Visit: ACUTE PANCREATITIS Current Active Problems Acute pancreatitis (Acute) Cholelithiasis (Acute) Condition: Fair - Instructions Diet, Activity, Other Instructions: Dr. Leonardo Discharge Instructions Dear ZHEN TALAVERA, Post Operative Instructions Physical activity Resume your normal everyday activity as tolerated no heavy lifting or exercise until seen by your surgeon. You may walk unlimited amounts of and climb stairs. You may resume driving the car when you feel safe and comfortable behind the wheel. Do not drive while taking narcotics. Wound care If you have a bandage, leave it on, and keep dry for 48 - 72 hours. After that time discard the outer bandage. If there are tapes on the skin under the outer bandage, leave them in place. They will peel off in the next 7 to 10 days. Do Not peel them off. You may shower 2 days after surgery. If there are tapes present on the skin, they can get wet. Diet There are no dietary restrictions. Eat healthy, high-fiber foods. Drink 6 to 8 glasses of liquid each day. This will assist in keeping your bowels are regular. Pain management You may take Tylenol (Acetaminophen) or Ibuprofen (for example, Motrin, Advil etc.) Any pain prescription medication ordered should be taken as prescribed for moderate to severe pain. Call Dr. Leonardo for any of the following: Severe pain not relieved by medication Fever of 101 or higher Excessive bleeding or drainage on dressing Inability to urinate Call the office at [phone] for a post operative appointment in 7 - 10 days. Referrals: Stefan Leonardo MD [Staff Physician] - Spencer Sommers [Primary Care Provider] - - Home Medications Comprehensive Discharge Medication List: Ambulatory Orders Benazepril HCl 10 mg PO DAILY 04/21/17 Folic Acid 1 mg PO DAILY 04/21/17 Metformin HCl [Glucophage -] 850 mg PO DAILY 04/21/17 Ranitidine [Zantac -] 150 mg PO BID 04/21/17 Acetaminophen [Tylenol .Regular Strength -] 650 mg PO Q6H PRN #0 tablet Acetaminophen [Tylenol .Regular Strength -] 650 mg PO Q6H PRN #0 tablet Folic Acid - 1 mg PO DAILY tablet 04/30/17 This patient is new to me today: No Emergency Visit: Yes ED Registration Date: 04/21/17 Care time: The patient presented to the Emergency Department on the above date and was hospitalized for further evaluation of their emergent condition. Critical Care patient: No - Discharge Referral Referred to [facility] No
--- NOTE | 2017-05-02 16:26 | PATH ---
Surgical Pathology Report Patient Name: ZHEN TALAVERA [facility]. Rec. #: [id number] /Age/Gender: 1965 (Age: 51) / M Account: [id number] Location: [address] [place] [address]/[facility] Taken: 04/29/2017 Received: 04/30/2017 Reported: 05/02/2017 Physicians: Stefan Leonardo MD Specimen(s) Received GALLBLADDER Clinical History Acute cholecystitis Final Diagnosis GALLBLADDER, CHOLECYSTECTOMY: CHRONIC CHOLECYSTITIS AND CHOLELITHIASIS. Electronically Signed Isiah Gmoez M.D. Gross Description Received in formalin, labeled "gallbladder," is a 9.0 x 2.5 x 2.4 cm. gallbladder with a 0.3 cm. in length portion of cystic duct attached. The outer surface is kong-gannon and varies from smooth to shaggy. The lumen contains green, tenacious bile as well as a 2.8 cm in greatest dimension green, ovoid cholelith. The mucosa is dark green and velvety. The wall of the gallbladder ranging from 0.1-0.4 cm. in thickness. Packager Or Packer And Weigher sections are submitted in one cassette. 04/30/2017 [facility]04/30/2017
== END 2017-04-30 15:03 | disposition home or self-care (01) | DRG 263 ==
LOC: JER 13:06 → JERBED 16:17 → J6S 04-22 18:32
PROVIDERS: ADMIT Internal Medicine; ATTEND Nurse Practitioner Family
PROC: 0DNS4ZZ (ICD-10-PCS; 2017-04-29)
PROC: 0FT44ZZ Resection of Gallbladder, Percutaneous Endoscopic Approach (ICD-10-PCS; principal; 2017-04-29 12:00)
DX: K85.10 Biliary acute pancreatitis without necrosis or infection (principal); K80.20 Calculus of gallbladder without cholecystitis without obstruction; E11.9 Type 2 diabetes mellitus without complications; I10 Essential (primary) hypertension; K66.0 Peritoneal adhesions (postprocedural) (postinfection); Z79.84 Long term (current) use of oral hypoglycemic drugs
CPT/HCPCS: 36415; 71010-TC; 74000-TC; 74177-TC; 74181-TC; 80053; 81003; 82150; 82550; 83036; 83605; 83690; 83735; 84100; 84478; 84484; 85025; 85610; 85730; 86140; 86850; 86900; 86901; 87040; 88304-TC; 93005; 93010; 94760; 97116-GP; 97161-GP; 99285-25; J1644; Q9967